=== PATIENT | female | born 1960 | race Caucasian/White ===

== ENCOUNTER → 2016-09-17 | Outpatient (CLI) | payer OTHER ==
[~2016-09-17] MED LIST: ASPI81TA28 PO; B-COTAB4 PO; BUPRTAB51 PO; CALC500T83 PO; CHOL100010 PO; CONJ.6255 PO; CONJ0.453 PO; GLC/500 PO; HYDR-5688 PO; LEVO100T7 PO; OMEGCAP2 PO; PRLSR20 PO; RANI75TA7 PO; SIMV20TA2 PO; TRIA75TA PO; [UNRECOGNIZED DRUG - OTHER]
== END | disposition home or self-care (01) ==
LOC: C.LABSPEC 16:00
PROVIDERS: ATTEND Preventive Medicine Occupational Medicine
DX: Z77.21 Contact with and (suspected) exposure to potentially hazardous body fluids (principal)

== ENCOUNTER → 2016-12-04 | Outpatient (CLI) | payer OTHER ==
[2016-12-04 13:22] LABS: ESTIMATED AVERAGE GLUCOSE 137 mg/dl; HA1C FLAG Normal (Normal)
[2016-12-04 13:26] LABS: BLOOD UREA NITROGEN 15 mg/dl (7-18); BUN/CREATININE RATIO 18.6 (10-20); CALCIUM 9.8 mg/dl (8.5-10.1); CARBON DIOXIDE 29 mmol/L (21-32); CHLORIDE 107 mmol/L (98-107); CREATININE 0.81 mg/dl (0.60-1.20); GLUCOSE 102 mg/dl (70-99); POTASSIUM 4.2 mmol/L (3.5-5.1); SODIUM 141 mmol/L (136-145)
== END ==
LOC: C.LABPVFM 10:06
PROVIDERS: ATTEND Family Medicine
DX: E11.9 Type 2 diabetes mellitus without complications (principal); E78.5 Hyperlipidemia, unspecified

== ENCOUNTER → 2016-12-17 | Outpatient (CLI) | payer OTHER ==
--- NOTE | 2016-12-17 16:30 | MAMMOGRAPHY REPORT ---
BILATERAL DIGITAL SCREENING MAMMOGRAM TOMOSYNTHESIS WITH CAD: 12/17/2016 CLINICAL HISTORY: Routine screening. Patient has no complaints. TECHNIQUE: Breast tomosynthesis in addition to standard 2D mammography was performed. Current study was also evaluated with a Computer Aided Detection (CAD) system. COMPARISON: Comparison is made to exams dated: 12/08/2015 mammogram, 11/08/2014 mammogram, 09/19/2013 m ammogram, 01/13/2012 mammogram, 12/17/2010 mammogram - [facility], and 02/21/2009. BREAST COMPOSITION: There are scattered areas of fibroglandular density in both breasts. FINDINGS: No suspicious masses, calcifications, or areas of architectural distortion are noted in e ither breast. There has been no significant interval change compared to prior exams. IMPRESSION: ACR BI-RADS CATEGORY 1: NEGATIVE There is no mammographic evidence of malignancy. A 1 year screening mammogram is recommended. The p atient will receive written notification of the results. Approximately 10% of breast cancers are not detected with mammography. A negative mammographic repor t should not delay biopsy if a clinically suggestive mass is present. Margot Walker M.D. ah/:12/17/2016 13:37:21 Spike Driver: Genny BUENO(Andrea)(M), [facility] letter sent: Normal 1/2 BI-RADS Code: ACR BI-RADS Category 1: Negative
== END | disposition home or self-care (01) ==
LOC: C.MAMM 08:40
PROVIDERS: ATTEND Obstetrics & Gynecology
DX: Z12.31 Encounter for screening mammogram for malignant neoplasm of breast (principal)

== ENCOUNTER 2017-03-04 12:28 | Emergency (ER) | payer OTHER ==
[~2017-03-04] VITALS: Ht 165.1 cm; Wt 101.2 kg
[~2017-03-04 12:28] MED LIST changes: -ASPI81TA28 PO; -B-COTAB4 PO; -BUPRTAB51 PO; -CALC500T83 PO; -CHOL100010 PO; -CONJ.6255 PO; -GLC/500 PO; -HYDR-5688 PO; -LEVO100T7 PO; -OMEGCAP2 PO; -SIMV20TA2 PO; -TRIA75TA PO
[2017-03-04 12:29] VITALS: TEMP 36.6; Ht 165.1 cm; Wt 101.2 kg
[2017-03-04] MEDS ORDERED: IBUPROFEN 600 MG TAB PO STA (12:35)
[2017-03-04] MEDS ORDERED: HYDROCODONE/ACETAMOPHEN 5/325MG TAB PO STA (12:35)
[2017-03-04] MEDS ORDERED: BUPRTAB51 PO (12:43)
[2017-03-04] MEDS ORDERED: SIMV20TA2 PO (12:43)
[2017-03-04] MEDS ORDERED: ASPI81TA28 PO (12:43)
[2017-03-04] MEDS ORDERED: B-COTAB4 PO (12:43)
[2017-03-04] MEDS ORDERED: CHOL100010 PO (12:43)
[2017-03-04] MEDS ORDERED: TRIA75TA PO (12:43)
[2017-03-04] MEDS ORDERED: CONJ.6255 PO (12:43)
[2017-03-04] MEDS ORDERED: GLC/500 PO (12:43)
[2017-03-04] MEDS ORDERED: LEVO100T7 PO (12:43)
[2017-03-04] MEDS ORDERED: OMEGCAP2 PO (12:43)
[2017-03-04] MEDS ORDERED: CALC500T83 PO (12:43)
--- NOTE | 2017-03-04 12:55 | DIAGNOSTIC IMAGING REPORT ---
LEFT KNEE 2 VIEWS CLINICAL HISTORY: Left knee twisting injury. FINDINGS: AP and crosstable lateral views of left knee are obtained. No prior studies are available for comparison at the time of dictation. The skeletal structures are well mineralized. No fracture is seen. There is only minimal degenerative narrowing in the medial and patellofemoral compartments. There are tiny patellar enthesophytes and small marginal osteophytes. A small joint effusion is suspected. The overlying soft tissues are within normal limits. IMPRESSION: Small joint effusion with no acute bony abnormality seen in the left knee. Electronically signed by: Robbie Muniz M.D. 03/04/2017 12:54 PM Dictated Date/Time: 03/04/2017 12:53 PM
--- NOTE | 2017-03-04 13:11 | EMERGENCY ROOM VISIT NOTE ---
ED Visit Note First contact with patient: 12:31 CHIEF COMPLAINT: Left Knee injury HISTORY OF PRESENT ILLNESS: This 57-year-old female presents to the ER with chief complaint of left knee injury which occurred while at work. 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 She states that her knee gave out. Since that time it feels like it is going to give out intermittently. She is able to bear weight but it is painful. The patient denies any prior injury to the left knee. The patient has been seen at [facility] in the past for other orthopedic needs. REVIEW OF SYSTEMS: 6 system review was performed and was negative unless stated otherwise in history of present illness. PMH: The patient is healthy; there is no significant medical or surgical history. SOCIAL HISTORY: Patient lives at home. PHYSICAL EXAM: Vital Signs: Were reviewed Reviewed Nurse's notes. GENERAL: 57- year-old white female appears in no acute distress. MENTAL STATUS: Alert, oriented, and cooperative. LEFT KNEE: No gross bony deformity noted. No erythema or edema noted. The patient is tender to palpation over the popliteal region. No palpable masses in this area. Patient has full range of motion of the knee with pain elicited with complete extension. There is no joint effusion. The patient has slight looseness of the posterior ligament as compared to the right side. EMERGENCY DEPARTMENT COURSE: The patient was evaluated. The patient's EMR medication list were reviewed. The patient was given Motrin 600 mg by mouth and Anacortes 5/325 mg, 2 tablets by mouth for pain. X-ray of the left knee was ordered and interpreted by the radiologist and myself. DIAGNOSTICS:LEFT KNEE 2 VIEWS CLINICAL HISTORY: Left knee twisting injury. FINDINGS: AP and crosstable lateral views of left knee are obtained. No prior studies are available for comparison at the time of dictation. The skeletal structures are well mineralized. No fracture is seen. There is only minimal degenerative narrowing in the medial and patellofemoral compartments. There are tiny patellar enthesophytes and small marginal osteophytes. A small joint effusion is suspected. The overlying soft tissues are within normal limits. IMPRESSION: Small joint effusion with no acute bony abnormality seen in the left knee. Electronically signed by: Robbie Muniz M.D. 03/04/2017 12:54 PM Dictated Date/Time: 03/04/2017 12:53 PM The patient was informed of the findings. The patient was placed in a knee immobilizer. The patient was discharged home in stable condition. DIAGNOSIS: Sprained left Knee DISCHARGE INSTRUCTIONS: Knee immobilizer for 3 - 5 days until the pain subsides , ibuprofen, 600 mg every 6 hours if needed for pain. Take Anacortes as needed for more severe pain. Do not drive while taking the Anacortes. Ice to and elevation to the knee frequently for the next 24 hours. Stay off the leg as much as possible and recommended follow-up with [facility]. Current/Historical Medications Scheduled Aspirin (Aspirin Ec), 81 MG PO DAILY B-Complex W/Biotin & Folic Aci (Super B-100), 1 TAB PO DAILY Bupropion Hcl (Wellbutrin Xl), 300 MG PO DAILY Calcium (Calcium), 1 TAB PO DAILY Cholecalciferol (Vitamin D), 1 TAB PO DAILY Estrog Conj/Medryoxyprog Acet (Prempro 0.625MG/2.5MG), 1 TAB PO DAILY Levothyroxine Sodium (Levothyroxine Sodium), 100 MCG PO DAILY Metformin Hcl (Glucophage), 500 MG PO BID [place]-3 Fatty Acids (Fish Oil), 1 CAP PO DAILY Simvastatin (Zocor), 20 MG PO HS Triamterene & Hydrochlorothiaz (Hctz/Triamterene), 1 TAB PO DAILY Allergies Coded Allergies: Cephalosporins (Verified Allergy, Severe, CEFADROXIL-ANAPHYLACTIC, 11/28/13 ) ANAPHYLAXIS TO DURICEF, HAS HAD AMOXIL SINCE THEN W/O PROBLEM. Vital Signs Date Time Temp Pulse Resp B/P (MAP) Pulse Ox O2 Delivery O2 Flow Rate FiO2 03/04/17 12:29 36.6 118 20 166/96 93 Room Air Medications Administered Medications (Trade) Dose Ordered Sig/Vitaliy Route Start Time Stop Time Status Last Admin Dose Admin Ibuprofen (Motrin Tab) 600 mg NOW STAT PO 03/04/17 12:35 03/04/17 12:37 DC 03/04/17 12:56 600 MG Acetaminophen/ Hydrocodone Bitart ([place] 5/325 Tab) 2 tab NOW STAT PO 03/04/17 12:35 03/04/17 12:37 DC 03/04/17 12:56 2 TAB Departure Information Referrals Yfn, Justice O.,M.D. (PCP) Patient Instructions My [facility]
[2017-03-04] MEDS ORDERED: HYDR-5688 PO (13:13)
[2017-03-04 13:30] VITALS: BP 139/93; PULSE 91; O2SAT 98
== END 2017-03-04 13:32 | disposition home or self-care (01) ==
LOC: C.EDB 12:29 → C.EDD 13:32
DX: S83.92XA Sprain of unspecified site of left knee, initial encounter (principal); X58.XXXA Exposure to other specified factors, initial encounter; Z79.82 Long term (current) use of aspirin; Z79.899 Other long term (current) drug therapy; Z88.8 Allergy status to other drugs, medicaments and biological substances

== ENCOUNTER → 2017-03-17 | Outpatient (CLI) | payer OTHER ==
[~2017-03-17] MED LIST changes: +ASPI81TA28 PO; +B-COTAB4 PO; +BUPRTAB51 PO; +CALC500T83 PO; +CHOL100010 PO; +CONJ.6255 PO; -CONJ0.453 PO; +GLC/500 PO; +HYDR-5688 PO; +LEVO100T7 PO; +OMEGCAP2 PO; -PRLSR20 PO; -RANI75TA7 PO; +SIMV20TA2 PO; +TRIA75TA PO; -[UNRECOGNIZED DRUG - OTHER]
== END | disposition home or self-care (01) ==
LOC: C.CPL 13:23
PROVIDERS: ATTEND Orthopaedic Surgery
DX: Z01.810 Encounter for preprocedural cardiovascular examination (principal)

== ENCOUNTER → 2017-05-06 | Outpatient (CLI) | payer OTHER ==
[2017-05-06 10:04] LABS: BLOOD UREA NITROGEN 17 mg/dl (7-18); BUN/CREATININE RATIO 20.5 (10-20); CALCIUM 9.2 mg/dl (8.5-10.1); CARBON DIOXIDE 30 mmol/L (21-32); CHLORIDE 105 mmol/L (98-107); CREATININE 0.84 mg/dl (0.60-1.20); GLUCOSE 110 mg/dl (70-99); SODIUM 140 mmol/L (136-145)
[2017-05-06 10:15] LABS: CHOLESTEROL 154 mg/dl (0-200); CHOLESTEROL/HDL RATIO 2.2; HDL CHOLESTEROL 69 mg/dl; LDL CHOLESTEROL CALCULATED 66 mg/dl; THYROID STIMULATING HORMONE 0.831 uIu/ml (0.300-4.500); TRIGLYCERIDES 97 mg/dl (0-150); VERY LOW DENSITY LIPOPROT CALC 19 mg/dl
== END | disposition home or self-care (01) ==
LOC: C.LAB 07:36
PROVIDERS: ATTEND Family Medicine
DX: E11.9 Type 2 diabetes mellitus without complications (principal); E03.9 Hypothyroidism, unspecified; E78.5 Hyperlipidemia, unspecified

== ENCOUNTER → 2017-12-19 | Outpatient (CLI) | payer OTHER ==
[~2017-12-19] MED LIST changes: -HYDR-5688 PO
--- NOTE | 2017-12-19 15:10 | MAMMOGRAPHY REPORT ---
BILATERAL DIGITAL SCREENING MAMMOGRAM TOMOSYNTHESIS WITH CAD: 12/19/2017 CLINICAL HISTORY: Routine screening. Patient has no complaints. TECHNIQUE: Breast tomosynthesis in addition to standard 2D mammography was performed. Current study was also evaluated with a Computer Aided Detection (CAD) system. COMPARISON: Comparison is made to exams dated: 12/17/2016 mammogram, 12/08/2015 mammogram, 11/08/2014 ma mmogram, 09/19/2013 mammogram, 01/13/2012 mammogram, and 12/17/2010 mammogram - [facility]. BREAST COMPOSITION: There are scattered areas of fibroglandular density in both breasts. FINDINGS: The parenchymal pattern is unchanged. No developing mass, architectural distortion or clus ter of suspicious microcalcifications is seen in either breast. IMPRESSION: ACR BI-RADS CATEGORY 2: BENIGN There is no mammographic evidence of malignancy. A 1 year screening mammogram is recommended. The pa tient will receive written notification of the results. Approximately 10% of breast cancers are not detected with mammography. A negative mammographic report should not delay biopsy if a clinically suggestive mass is present. Deedee River M.D. ay/:12/19/2017 13:28:13 Management Developer: Kanchan BUENO(Andrea)(Ese)(BD), [facility] letter sent: Normal 1/2 BI-RADS Code: ACR BI-RADS Category 2: Benign
== END | disposition home or self-care (01) ==
LOC: C.MAMM 09:50
PROVIDERS: ATTEND Obstetrics & Gynecology
DX: Z12.31 Encounter for screening mammogram for malignant neoplasm of breast (principal)

== ENCOUNTER → 2017-12-21 | Outpatient (CLI) | payer OTHER ==
[2017-12-21 13:09] LABS: HEMATOCRIT 44.4 % (37-47); HEMOGLOBIN 15.2 g/dL (12.0-16.0); MEAN CELL VOLUME 89.5 fL (80-100); MEAN CORPUSCULAR HEMOGLOBIN 30.6 pg (25-34); MEAN CORPUSCULAR HGB CONC 34.2 g/dl (32-36); MEAN PLATELET VOLUME 9.6 fL (7.4-10.4); PLATELET COUNT 259 K/uL (130-400); RED CELL DISTRIBUTION WIDTH CV 13.4 % (11.5-14.5); RED CELL DISTRIBUTION WIDTH SD 43.4 fL (36.4-46.3); WHITE BLOOD COUNT 7.48 K/uL (4.8-10.8)
[2017-12-21 13:22] LABS: HEMOGLOBIN A1C 6.6 % (4.5-5.6)
[2017-12-21 14:03] LABS: ALBUMIN 3.8 gm/dl (3.4-5.0); ALKALINE PHOSPHATASE 90 U/L (45-117); ALT/SGPT 34 U/L (12-78); AST/SGOT 30 U/L (15-37); BLOOD UREA NITROGEN 21 mg/dl (7-18); CALCIUM 8.9 mg/dl (8.5-10.1); CARBON DIOXIDE 28 mmol/L (21-32); CHOLESTEROL 157 mg/dl (0-200); CREATININE 0.84 mg/dl (0.60-1.20); GLUCOSE 147 mg/dl (70-99); LDL CHOLESTEROL CALCULATED 74 mg/dl; POTASSIUM 4.1 mmol/L (3.5-5.1); SODIUM 137 mmol/L (136-145); TOTAL PROTEIN 7.6 gm/dl (6.4-8.2)
== END | disposition home or self-care (01) ==
LOC: C.LABPVFM 07:40
PROVIDERS: ATTEND Family Medicine
DX: R60.9 Edema, unspecified (principal)

== ENCOUNTER → 2018-03-07 | Outpatient (CLI) | payer OTHER | END | disposition home or self-care (01) | LOC: C.PAPS 17:31 | PROVIDERS: ATTEND Obstetrics & Gynecology | DX: Z01.419 Encounter for gynecological examination (general) (routine) without abnormal findings (principal) ==

== ENCOUNTER 2024-10-31 12:42 | Inpatient (IN) ==
--- NOTE | 2024-10-31 12:55 | Emergency Department Note ---
Impression & Plan Headache, Hypertension ED Provider Note CHIEF COMPLAINT: Headache, blurred vision HISTORY OF PRESENTING ILLNESS: Patient is a pleasant 64-year-old female who arrives to the emergency department for evaluation of persistent headache that began at approximately 4:00 this morning. She reports recent intermittent episodes of dizziness, with no history of vertigo. She reports this morning she had a headache that began, and has been persistent throughout the day. She denies any weakness, difficulty with speech, or other neurological deficits. She reports some blurred vision. She states noting that her blood pressure is currently elevated, with no history of hypertension. She also notes some chest pressure, however no shortness of breath. REVIEW OF SYSTEMS: See HPI for pertinent positives and pertinent negatives. ALLERGIES: See below MEDICATIONS: See below PAST MEDICAL HISTORY: See below PHYSICAL EXAM: VITALS: Vitals are noted on the nurse's note and reviewed by myself. Vital signs stable. GENERAL: 64-year-old female, in no acute distress, nondiaphoretic, well- developed well-nourished. SKIN: The skin was without rashes, erythema, edema, or bruising. HEAD: Normocephalic atraumatic. EYES: Pupils equal round and reactive to light and accommodation. Conjunctivae without injection, sclerae without icterus. Extraocular movements intact. No nystagmus present. NECK: Supple without nuchal rigidity. No lymphadenopathy. No JVD. HEART: Regular rate and rhythm without murmurs gallops or rubs. LUNGS: Clear to auscultation bilaterally without wheezes, rales or rhonchi. No retractions or accessory muscle use. MUSCULOSKELETAL: No muscle atrophy, erythema, or edema noted. Normal gait. Strength 5/5 throughout. NEURO: Patient was alert and oriented to person place and time. No focal neurological deficits. DIFFERENTIAL DIAGNOSIS: Migraine headache, meningitis, sinusitis, CO exposure, ICH, SAH, infection, tumor, headache, sinus thrombosis, arterial dissection, as well as other pathologies. ED COURSE AND MEDICAL DECISION MAKING: MEDICATIONS GIVEN: 1000 mg IV acetaminophen, 1 g IV magnesium MONITOR: Continuous wheelabrator operator: Order was placed for continuous wheelabrator operator. Patient was placed on the wheelabrator operator and continuous pulse ox. Patient was noted to be in normal sinus rhythm at an initial rate of 81 bpm per my interpretation. EKG: EKG was interpreted by myself as sinus rhythm with occasional PVCs, at a rate of 80 bpm, no ST elevation or depression. Previous for comparison from October 29, 2020 shows new PVCs. INTERPRETATION OF LABS: I interpreted the labs with full lab results as below in the lab section of this note. Pertinent lab results discussed in the MDM section below. INTERPRETATION OF IMAGING: Imaging studies were interpreted by myself and read by radiology as per the imaging section of this note. MDM SUMMARY: The patient is a pleasant, well-appearing, 64-year-old female who arrives to the emergency department for evaluation of the above-stated complaint. A saline lock was established, CBC, CMP, magnesium, PT/INR, PTT, D- dimer, troponin as well as urinalysis were obtained. CBC shows no leukocytosis, no anemia. CMP shows hypomagnesemia, PT/INR, PTT within normal limits. D-dimer 580, however negative with age adjustment. Troponin negative. Urinalysis negative for infection. Chest x-ray imaging as well as CT imaging of the head were obtained. Chest x-ray imaging per my interpretation shows no acute cardiopulmonary process. CT imaging of the head was obtained which shows equivocal loss of headley-white differentiation in the left posterior parietal region. Recommendation is made by radiology for consideration of brain MRI for further evaluation. NIHSS performed at that time, with stroke evaluation, and orders placed minus CTA imaging of the head and neck pending MRI imaging. NIHSS performed by nursing staff as well as dysphagia screening with negative result. Patient did remain hypertensive during her stay. She was provided with as milligrams of IV acetaminophen, and 1 g of IV magnesium for correction. I spoke with Dr. Sheldon from the [facility] hospitalist service regarding admission for further stroke workup and evaluation. He agreed to accept the patient for admission, and further patient evaluation and workup. Please refer to his documentation. DIAGNOSIS: Headache, hypertension The chart was completed utilizing [employer] voice recognition software. Grammatical errors, random word insertions, pronoun errors, and incomplete sentences are an occasional consequence of this system due to software limitations, ambient noise, and hardware issues. Any formal questions or concerns about the content, text, or information contained within the body of this dictation should be directly addressed to the provider for clarification. TREATMENT PLAN/DISCHARGE INSTRUCTIONS: Admit to hospitalist service Past Med/Surg History Problem List (Updated 11/01/24 @ 11:13 by LAYNE Perry) Hypertension (Acute) Headache (Acute) History of artificial eye lens Anxiety HTN (hypertension) Inconclusive mammogram Ureteral stricture, right Encounter for pre-operative examination Routine health maintenance (Chronic) Encounter for annual routine gynecological examination Left knee pain Hydronephrosis concurrent with and due to calculi of kidney and ureter Bilateral nephrolithiasis Urge incontinence (Chronic) Type 2 diabetes mellitus (Chronic) Peripheral neuropathy (Chronic) Hypothyroidism (Chronic) Edema (Acute) Dyslipidemia (Chronic) Depression (Acute) Arthralgia of multiple sites (Acute) Medical History History of kidney stones Temporomandibular joint disorder no bite block/no surgeries Exercise-induced asthma inhaler prn Surgical History History of cataract surgery History of carpal tunnel release of both wrists Status post trigger finger release x5 History of lithotripsy (~2006) with stent placement History of salpingo-oophorectomy History of tonsillectomy and adenoidectomy History of tooth extraction History of wisdom tooth extraction S/P colonoscopy last 08/2020 hx of polypectomy H/O arthroscopy of knee left History of hysteroscopy 2013, PMB on HRT H/O dilation and curettage Family History Family/Other No problems noted. Mother Myocardial infarction Family history of reaction to anesthesia difficulty waking Father Family history of diabetes mellitus Denies family history of Ovarian cancer Prostate cancer Breast cancer Colorectal cancer Social History Smoking Status: Former smoker Tobacco Type: Cigarettes Age Started Using Tobacco: 14; Age Quit Using Tobacco: 51; packs per day: 0.9; Second Hand Exposure: Yes (parents smoked/ex and children all smoke); Do You Dip or Chew Tobacco: No; Hx Alcohol Use: Yes Alcohol type: beer Hx Substance Use: No Preferred Language: Tamazight Communication Ability: Effective Data Transcriber Required: No Beliefs That Will Affect Care: None marital status: Current Living Situation: Family Current Living Situation Comment: lives at home with pets current occupational status: employed current occupation: Is Support Analyst How many Children do You have: 3 Feels Safe at Home: Yes Childhood Exposure to Second-Hand Smoke: Yes Diet: regular caffeine: Yes Dental Care, Regularly: Yes Physical Activity Frequency: Does not Exercise Seatbelt Use: always Sunscreen Use: Yes Assistive Devices: None Allergies Allergies Allergy/AdvReac Type Severity Reaction Status Date / Time cefadroxil [From Durice] Allergy Severe ANAPHYLAXIS Verified 10/31/24 14:31 Cephalosporins Allergy Severe CEFADROXIL- Verified 10/31/24 14:31 ANAPHYLACTI C Home Meds Home Medications Medication Instructions Recorded Confirmed calcium 600 mg (as 1 cap PO HS 01/20/19 10/31/24 carbonate)-vitamin D3 5 mcg (200 unit) capsule (Calcium 600 + D(3)) aspirin 81 mg tablet,delayed 81 mg PO HS 10/26/20 10/31/24 release (Sonia Low Dose Aspirin) omega [id number]-[id number]-fish oil 900 1 cap PO QAM 10/31/24 10/31/24 mg-1,400 mg capsule,delayed release triamterene 37.5 0.5 tab PO Q OTHER DAY 10/31/24 10/31/24 mg-hydrochlorothiazide 25 mg tablet Previous Rx's Medication Instructions Recorded albuterol sulfate 90 mcg/actuation 1 - 2 puff inhalation Q4 PRN 08/08/23 aerosol inhaler (Ventolin HFA) Shortness Of Breath Or Wheezing #6.7 grams atorvastatin 40 mg tablet 40 mg PO HS #90 tabs 07/26/24 duloxetine 60 mg capsule,delayed 60 mg PO QAM #90 caps 07/26/24 release (Cymbalta) levothyroxine 100 mcg tablet 100 mcg PO QAM #90 tabs 07/26/24 metformin 1,000 mg tablet 1,000 mg PO BID #180 tabs 07/26/24 oxybutynin chloride 10 mg 10 mg PO DAILY #90 tabs 07/26/24 tablet,extended release 24 hr levofloxacin 500 mg tablet 500 mg PO DAILY 10 days #10 tabs 11/01/24 prednisone 20 mg tablet 40 mg (2 x 20 mg) PO DAILY 4 days 11/01/24 #8 tabs Results & Data (ED) Vital Signs Vital Signs - 24 hr 10/31/24 12:49 10/31/24 13:13 10/31/24 13:13 Temperature 36.4 C L Temperature Source Temporal Artery Scan Pulse Rate 81 76 Pulse Rate [Apical] 79 Respiratory Rate 18 16 17 Respiratory Effort / Characteristics Non-Labored Non-Labored Spontaneous Respiratory Depth Normal Normal Respiratory Pattern Regular Blood Pressure 182/106 H Blood Pressure [Right Arm] 162/105 H Blood Pressure Mean 131 Blood Pressure Mean [Right Arm] 124 Blood Pressure Position [Right Arm] Semi-fowlers Pulse Oximetry 96 95 97 Oxygen Delivery Method Room Air Room Air Room Air Sepsis Recent Fever Within 48 Hours No Sepsis New/Unexplained Change in Mental Status N/A Sepsis Action Taken by Nursing No Action Required 10/31/24 13:43 10/31/24 14:37 10/31/24 15:00 Temperature Temperature Source Pulse Rate 85 85 Pulse Rate [Apical] 85 Respiratory Rate 22 16 Respiratory Effort / Characteristics Non-Labored Spontaneous Respiratory Depth Normal Respiratory Pattern Blood Pressure 183/115 H Blood Pressure [Right Arm] 177/102 H Blood Pressure Mean 144 Blood Pressure Mean [Right Arm] 127 Blood Pressure Position [Right Arm] Semi-fowlers Pulse Oximetry 96 96 Oxygen Delivery Method Room Air Sepsis Recent Fever Within 48 Hours Sepsis New/Unexplained Change in Mental Status Sepsis Action Taken by Nursing 10/31/24 15:30 Temperature Temperature Source Pulse Rate 1 L Pulse Rate [Apical] Respiratory Rate 16 Respiratory Effort / Characteristics Respiratory Depth Respiratory Pattern Blood Pressure 187/108 H Blood Pressure [Right Arm] Blood Pressure Mean 140 Blood Pressure Mean [Right Arm] Blood Pressure Position [Right Arm] Pulse Oximetry 97 Oxygen Delivery Method Room Air Sepsis Recent Fever Within 48 Hours Sepsis New/Unexplained Change in Mental Status Sepsis Action Taken by Longterm Medications Current Medication List: was personally reviewed by me Laboratory Data Attestation: I reviewed the patient's lab results. 10/31/24 13:07 10/31/24 13:07 Lab Results 10/31/24 10/31/24 Range/Units 13:07 14:41 WBC 8.76 (4.8-10.8) K/ul RBC 4.55 (4.20-5.40) M/uL Hgb 14.4 (12.0-16.0) g/dl Hct 42.0 (37.0-47.0) % MCV 92.3 (80.0-100.0) fL MCH 31.6 (25.0-34.0) pg MCHC 34.3 (32.0-36.0) g/dL RDW Std Deviation 42.5 (36.4-46.3) fL RDW Coeff of Yahaira 12.5 (11.5-14.5) % Plt Count 299 (130-400) K/uL MPV 9.7 (9.4-12.4) fL Immature Gran % (Auto) 0.3 % Neut % (Auto) 57.2 % Lymph % (Auto) 33.1 % [place] % (Auto) 5.5 % Eos % (Auto) 3.3 % Baso % (Auto) 0.6 % Neut # (Auto) 5.01 (1.40-6.50) K/uL Lymph # (Auto) 2.90 (1.20-3.40) K/uL [place] # (Auto) 0.48 (0.11-0.59) K/uL Eos # (Auto) 0.29 (0.00-0.50) K/uL Baso # (Auto) 0.05 (0.00-0.20) K/uL Immature Gran # (Auto) 0.03 (0.01-0.20) K/uL PT 10.4 (9.0-12.0) Seconds INR 1.0 (0.9-1.1) APTT 25 (21-31) Seconds PTT Ratio 0.9 D-Dimer 580 H* (0-500) ug/L FEU Sodium 140 (136-145) mmol/L Potassium 3.7 (3.5-5.1) mmol/L Chloride 103 (98-107) mmol/L Carbon Dioxide 31 (21-32) mmol/L Anion Gap 6 (3-11) BUN 19 (6-23) mg/dl Creatinine 0.65 (0.6-1.2) mg/dl Est Cr Clr Drug Dosing 76.6 ml/min eGFR 97.04 BUN/Creatinine Ratio 29.2 H (10-20) Glucose 112 H (70-99(Fasting)) mg/dl Calcium 10.4 H (8.6-10.3) mg/dl Magnesium 1.5 L (1.7-2.4) mg/dl Total Bilirubin 0.6 (0.2-1.0) mg/dl AST 22 (13-39) U/L ALT 14 (7-52) U/L Alkaline Phosphatase 87 (34-104) U/L Troponin I High Sens 2.8 (0-14) pg/ml Total Protein 8.1 (6.0-8.3) gm/dl Albumin 4.9 (3.4-5.0) gm/dl Globulin 3.2 (2.5-4.0) gm/dl Albumin/Globulin Ratio 1.5 (0.9-2) Urine Color Yellow Urine Appearance Clear (Clear) Urine pH 6.0 (4.5-7.5) Ur Specific [place] 1.013 (1.000-1.030) Urine Protein Negative (Negative) Urine Glucose (UA) Negative (Negative) Urine Ketones Negative (Negative) Urine Blood Negative (Negative) Urine Nitrite Negative (Negative) Urine Bilirubin Negative (Negative) Urine Urobilinogen Negative (Negative) Ur Leukocyte Esterase Negative (Negative) Administered Medications Discontinued Medications Acetaminophen (Acetaminophen 325 Mg Tab) 650 mg PO Q4H PRN PRN Reason: Pain or Fever Stop: 11/30/24 17:53 Last Admin: 10/31/24 20:06 Dose: 650 mg Documented By: JUANCARLOS Aspirin (Aspirin 325 Mg Ectab) 325 mg PO ONE ONE Stop: 10/31/24 21:01 Last Admin: 10/31/24 21:25 Dose: 325 mg Documented By: JUANCARLOS Atorvastatin Calcium (Atorvastatin 40 Mg Tab) 40 mg PO [facility] Stop: 11/30/24 20:59 Last Admin: 10/31/24 21:26 Dose: 40 mg Documented By: JUANCARLOS Calcium/Vitamin D (Calcium 600mg + Vit D 400 Iu Tab) 1 tab PO HS [facility] Stop: 11/30/24 20:59 Last Admin: 10/31/24 20:04 Dose: 1 tab Documented By: JUANCARLOS Duloxetine HCl (Duloxetine Hcl 60 Mg Cap) 60 mg PO QAM [facility] Stop: 12/01/24 08:59 Last Admin: 11/01/24 09:11 Dose: 60 mg Documented By: SANJIV Guaifenesin (Guaifenesin 600 Mg Tabcr) 1,200 mg PO Q12 LYNETTE Stop: 11/30/24 20:59 Last Admin: 11/01/24 09:11 Dose: 1,200 mg Documented By: Admin: 10/31/24 20:04 Dose: 1,200 mg Documented By: JUANCARLOS Heparin Sodium (Porcine) (Heparin Sod 5,000 Unit/0.5 Ml Vial) 5,000 units SQ Q12 LYNETTE Stop: 11/30/24 20:59 Last Admin: 11/01/24 09:12 Dose: Not Given Documented By: Admin: 10/31/24 20:03 Dose: 5,000 units Documented By: JUANCARLOS Acetaminophen (Ofirmev) 1,000 mg in 100 mls @ 400 mls/hr IV NOW STA Stop: 10/31/24 13:11 Last Infusion: 10/31/24 14:34 Dose: Infused Documented By: Admin: 10/31/24 13:36 Dose: 400 mls/hr Documented By: ROXANNE Magnesium Sulfate/Dextrose (Magnesium Sulfate / D5w) 1 gm in 100 mls @ 100 mls/hr IV NOW STA Stop: 10/31/24 15:00 Last Infusion: 10/31/24 15:39 Dose: Infused Documented By: Admin: 10/31/24 14:33 Dose: 100 mls/hr Documented By: BOBBY Magnesium Sulfate/Dextrose (Magnesium Sulfate / D5w) 1 gm in 100 mls @ 50 mls/hr IV ONE ONE Stop: 10/31/24 19:59 Last Infusion: 10/31/24 22:01 Dose: Infused Documented By: Admin: 10/31/24 19:57 Dose: 50 mls/hr Documented By: JUANCARLOS Ketorolac Tromethamine (Ketorolac 30 Mg/Ml Vial) 15 mg IV NOW ONE Stop: 10/31/24 15:50 Last Admin: 10/31/24 16:09 Dose: 15 mg Documented By: JASON Labetalol HCl (Labetalol Hcl Iv 5 Mg/Ml 20ml) 10 mg IV NOW STA Stop: 10/31/24 19:47 Last Admin: 10/31/24 19:58 Dose: 10 mg Documented By: JUANCARLOS Levothyroxine Sodium (Levothyroxine Sodium 100 Mcg Tablet) 100 mcg PO DAILYBB LYNETTE Stop: 12/01/24 06:29 Last Admin: 11/01/24 05:40 Dose: 100 mcg Documented By: JUANCARLOS Oxybutynin Chloride (Oxybutynin Chloride Xl 5 Mg Tabcr) 10 mg PO DAILY LYNETTE Stop: 12/01/24 08:59 Last Admin: 11/01/24 09:11 Dose: 10 mg Documented By: SANJIV Prednisone (Prednisone 20 Mg Tab) 40 mg PO ONE ONE Stop: 10/31/24 19:01 Last Admin: 10/31/24 21:25 Dose: 40 mg Documented By: JUANCARLOS Imaging Data Attestation: I personally reviewed and interpreted this imaging study as follows: Discharge Plan Visit Data Chief Complaint: Headache Stated Complaint: HEADACHE, NAUSEA ED Provider: Rashid Campbell ED Midlevel Provider: Nicci Mayo Discharge Problem: Headache, Hypertension Patient Disposition: Admitted As Inpatient Discharge Instructions Interventions: ED Discharge Assessment Last Done: 10/31/24 18:37
--- NOTE | 2024-10-31 13:22 | XRay Report ---
XR chest 1V portable HISTORY: 64 years-old Female Chest pain, nonspecific COMPARISON: 10/29/2020 TECHNIQUE: AP view the chest FINDINGS: Spondylotic spurring of the spine. Cardiomediastinal and hilar silhouettes are within normal limits. No pneumothorax, pleural effusion, airspace consolidation or pulmonary edema. Bones appear grossly in tact. IMPRESSION: No acute process. ACT 112: Negative or not required by law. The above report was generated using voice recognition software. It may contain grammatical, syntax o r spelling errors. Electronically signed by: Jorje Jensen M.D. 10/31/2024 1:21 PM
[2024-10-31 13:33] LABS: Basophils # (auto) 0.05 K/uL (0.00-0.20); Basophils % (auto) 0.6 %; Eosinophils # (auto) 0.29 K/uL (0.00-0.50); Eosinophils % (auto) 3.3 %; Hemoglobin 14.4 g/dl (12.0-16.0); Immature Granulocytes # (auto) 0.03 K/uL (0.01-0.20); Immature Granulocytes % (auto) 0.3 %; Lymphocytes % (auto) 33.1 %; Mean Corpuscular Hemoglobin 31.6 pg (25.0-34.0); Mean Corpuscular Hgb Conc 34.3 g/dL (32.0-36.0); Mean Corpuscular Volume 92.3 fL (80.0-100.0); Mean Platelet Volume 9.7 fL (9.4-12.4); Monocytes # (auto) 0.48 K/uL (0.11-0.59); Monocytes % (auto) 5.5 %; Neutrophils # (auto) 5.01 K/uL (1.40-6.50); Neutrophils % (auto) 57.2 %; Platelet Count 299 K/uL (130-400); RDW Coefficient of Variation 12.5 % (11.5-14.5); RDW Standard Deviation 42.5 fL (36.4-46.3); Red Blood Count 4.55 M/uL (4.20-5.40); White Blood Count 8.76 K/ul (4.8-10.8)
[2024-10-31] MEDS: ACETAMINOPHEN 1,000 MG/100 ML VIAL IV STA (13:36)
--- NOTE | 2024-10-31 13:46 | CT Scan Report ---
CT head/brain wo con CLINICAL HISTORY: headache. TECHNIQUE: Multiple axial CT images of the head were obtained without contrast. Sagittal and coronal reconstructions were done. A dose lowering technique was utilized adhering to the principles of ALARA . CT DOSE: 547.75 mGy.cm COMPARISON: None FINDINGS: There is no intra-axial or extra-axial fluid collection, hemorrhage, or mass. There is an a dav of subtle loss of the headley-white differentiation in the left upper posterior parietal region of u ncertain clinical significance in the absence of a neurological deficit. Consider MRI imaging if stro ke is a clinical consideration. The ventricles and sulci are age-appropriate with no midline shifting. The bone windows are negative. IMPRESSION: Equivocal loss of headley-white differentiation in the left posterior parietal region. Consi maggie brain MRI in the appropriate clinical context. ACT 112: Negative or not required by law. The above report was generated using voice recognition software. It may contain grammatical, syntax o r spelling errors. Electronically signed by: Karolyn Castillo M.D. 10/31/2024 1:45 PM
[2024-10-31 13:54] LABS: Albumin Level 4.9 gm/dl (3.4-5.0); Bilirubin,Total 0.6 mg/dl (0.2-1.0); Calcium 10.4 mg/dl (8.6-10.3); Magnesium 1.5 mg/dl (1.7-2.4); Potassium 3.7 mmol/L (3.5-5.1)
[2024-10-31 14:00] LABS: Albumin Globulin Ratio 1.5 (0.9-2); BUN Creatinine Ratio 29.2 (10-20); Creatinine Clr Calc Pharmacy 76.6 ml/min; Globulin 3.2 gm/dl (2.5-4.0); Total Protein 8.1 gm/dl (6.0-8.3)
--- NOTE | 2024-10-31 14:00 | Electrocardiogram Report ---
Test Reason : Blood Pressure : */* mmHG Vent. Rate : 80 BPM Atrial Rate : 80 BPM P-R Int : 156 ms QRS Dur : 88 ms QT Int : 378 ms P-R-T Axes : 64 37 37 degrees QTcB Int : 435 ms Sinus rhythm with occasional Premature ventricular complexes Poor R wave progression, consider anterior TN vs. lead placement vs. LVH Abnormal ECG When compared with ECG of 29-Oct-2020 14:02, Premature ventricular complexes are now Present Confirmed by Alexander Muñiz ([id number]) on 10/31/2024 2:00:12 PM Referred By: REFERRED SELF Confirmed By: Alexander Muñiz
[2024-10-31 14:03] LABS: Troponin I High Sensitivity 2.8 pg/ml (0-14)
[2024-10-31 14:05] LABS: Partial Thromboplastin Ratio 0.9; Partial Thromboplastin Time 25 Seconds (21-31); Prothrombin Time 10.4 Seconds (9.0-12.0)
[2024-10-31 14:15] LABS: D Dimer 580 ug/L FEU (0-500)
[2024-10-31] MEDS: MAGNESIUM SULFATE / D5W 1 GM/100 ML BAG IV STA (14:33)
[2024-10-31 14:54] LABS: Appearance Urine Clear (Clear); Bilirubin Urine Negative (Negative); Blood Urine Negative (Negative); Color Urine Yellow; Glucose Urine UA Negative (Negative); Ketones Urine Negative (Negative); Leukocyte Esterase Urine Negative (Negative); Nitrite Urine Negative (Negative); Protein Urine Negative (Negative); Specific Gravity Urine 1.013 (1.000-1.030); Urobilinogen Urine Negative (Negative)
[2024-10-31] MEDS: KETOROLAC 30 MG/ML VIAL IV ONE (16:09)
--- NOTE | 2024-10-31 16:30 | History & Physical Report ---
Date of Service October 31, 2024 Assessment & Plan (1) Headache: (2) Type 2 diabetes mellitus: (3) Hypothyroidism: (4) HTN (hypertension): Plan 64-year-old female history of headache and dizziness presents with abnormal CT scan of head. #Rule out stroke. Patient will have an MRI and MRA a of her neck. She started on aspirin 325 will continue on her daily aspirin and atorvastatin. Sternal risks factors include her diabetes. Hypertension. #Possible sinus congestion patient will be given 1 dose of prednisone in the urgency department will be given Mucinex and nasal saline. She does not appear to have any infectious symptoms at this time antibiotics not be started #Diabetes patient will have her metformin held especially with her CTA performed this might be restarted for 3 days. If her glucose is out of control we will employ sliding scale insulin #Hypertensionpatient to be going triamterene-hydrochlorothiazide. 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 She presents with having a headache and dizziness at work which is described as not vertiginous. She has had intermittent problems with feeling dizzy or instability of her balance for some time and most recently is worrying about sinus pressure or discomfort. Per evaluation involve the CTA of her head and there was some concern of headley-white matter loss of differentiation which could be an early warning sign of stroke. Patient has no other focal neurological deficits problems with asymmetric face or speech or swallowing. Patient is recommended for admission for concern for stroke and equivocally will begin consideration of symptomatic treatment of sinus congestion and pressure Otherwise patient denies any other changes in her physical body no recent fevers no recent upper respiratory infections other than the nasal congestion no chest pain or pressure shortness of breath Allergies Allergy/AdvReac Type Severity Reaction Status Date / Time cefadroxil [From Duricef] Allergy Severe ANAPHYLAXIS Verified 10/31/24 14:31 Cephalosporins Allergy Severe CEFADROXIL- Verified 10/31/24 14:31 ANAPHYLACTI C Home Medications Medication Instructions Recorded Confirmed Type calcium 600 mg (as 1 cap PO HS 01/20/19 10/31/24 History carbonate)-vitamin D3 5 mcg (200 unit) capsule (Calcium 600 + D(3)) aspirin 81 mg tablet,delayed 81 mg PO HS 10/26/20 10/31/24 History release (Sonia Low Dose Aspirin) albuterol sulfate 90 mcg/actuation 1 - 2 puff inhalation Q4 PRN 08/08/23 10/31/24 Rx aerosol inhaler (Ventolin HFA) Shortness Of Breath Or Wheezing #6.7 grams atorvastatin 40 mg tablet 40 mg PO HS #90 tabs 07/26/24 10/31/24 Rx duloxetine 60 mg capsule,delayed 60 mg PO QAM #90 caps 07/26/24 10/31/24 Rx release (Cymbalta) levothyroxine 100 mcg tablet 100 mcg PO QAM #90 tabs 07/26/24 10/31/24 Rx metformin 1,000 mg tablet 1,000 mg PO BID #180 tabs 07/26/24 10/31/24 Rx oxybutynin chloride 10 mg 10 mg PO DAILY #90 tabs 07/26/24 10/31/24 Rx tablet,extended release 24 hr omega 6-tet-agt-fish oil 900 1 cap PO QAM 10/31/24 10/31/24 History mg-1,400 mg capsule,delayed release triamterene 37.5 0.5 tab PO Q OTHER DAY 10/31/24 10/31/24 History mg-hydrochlorothiazide 25 mg tablet Past Med/Surg History Problem List (Updated 10/31/24 @ 16:27 by Nathan Sheldon MD) Headache History of artificial eye lens Anxiety HTN (hypertension) Inconclusive mammogram Ureteral stricture, right Encounter for pre-operative examination Routine health maintenance (Chronic) Encounter for annual routine gynecological examination Left knee pain Hydronephrosis concurrent with and due to calculi of kidney and ureter Bilateral nephrolithiasis Urge incontinence (Chronic) Type 2 diabetes mellitus (Chronic) Peripheral neuropathy (Chronic) Hypothyroidism (Chronic) Edema (Acute) Dyslipidemia (Chronic) Depression (Acute) Arthralgia of multiple sites (Acute) Medical History History of kidney stones Temporomandibular joint disorder Exercise-induced asthma Surgical History History of cataract surgery History of carpal tunnel release of both wrists Status post trigger finger release History of lithotripsy (~2006) History of salpingo-oophorectomy History of tonsillectomy and adenoidectomy History of tooth extraction History of wisdom tooth extraction S/P colonoscopy H/O arthroscopy of knee History of hysteroscopy H/O dilation and curettage Family History Family/Other No problems noted. Mother Myocardial infarction Family history of reaction to anesthesia Father Family history of diabetes mellitus Denies family history of Ovarian cancer Prostate cancer Breast cancer Colorectal cancer Social History Smoking Status: Former smoker Tobacco Type: Cigarettes Age Started Using Tobacco: 14; Age Quit Using Tobacco: 51; packs per day: 0.9; Smoking End Date: 12 years ago; Second Hand Exposure: Yes (parents smoked/ex and children all smoke); Do You Dip or Chew Tobacco: No; Hx Alcohol Use: Yes Alcohol type: beer Hx Substance Use: No Preferred Language: Turkish Communication Ability: Effective [place] Room Worker Required: No Beliefs That Will Affect Care: None marital status: Current Living Situation: Family Current Living Situation Comment: lives at home with pets current occupational status: employed 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 How many Children do You have: 3 Other Information That Helps Us Care for You: No Feels Safe at Home: Yes Safety Concerns: Feels Safe At This Time Childhood Exposure to Second-Hand Smoke: Yes Diet: regular caffeine: Yes Dental Care, Regularly: Yes Physical Activity Frequency: Does not Exercise Seatbelt Use: always Sunscreen Use: Yes Assistive Devices: None Review of Systems Review of Systems: Mild distress and fatigue Bifrontal headache not positional unremitting Complains of feeling of sinus congestion but not with production of mucus no positional change of pain no speech or swallowing issues no chest pain, pressure or palpitations no shortness of breath, cough or wheezes no abdominal pain, nausea or vomiting, diarrhea or constipation no dysuria, hematuria or frequency no focal joint pain or swelling no back pain, CVA tenderness or radicular pain no bruising, bleeding or rashes no focal signs of weakness or numbness or altered sensation no complaints of anxiety or depression.. Physical Exam Physical Exam: The patient appeared well nourished and normally developed. Vital signs as documented. Head exam is normocephalic atraumatic Neck is without JVD, thyromegaly, or carotid bruits. Lungs are clear to auscultation, no focal loss of breath sounds Cardiac exam, Rhythm is regular.. No murmurs, rubs or gallops. Abdominal exam reveals normal bowel sounds, soft non tender, no masses Extremities are nonedematous and both pedal pulses are present Neurologic exam is alert and oriented, no focal loss of strength or sensation Skin is without bruises or rashes Psychologically is without concerns for anxiety or depression.. Results & Data Results & Data Vital Signs (Past 12 Hours) Vital Signs Temp Pulse Pulse Resp BP BP Pulse Ox 10/31/24 15:30 1 L 16 187/108 H 97 10/31/24 15:00 85 16 183/115 H 96 10/31/24 14:37 85 22 177/102 H 96 10/31/24 13:43 85 10/31/24 13:13 76 17 97 10/31/24 13:13 79 16 162/105 H 95 10/31/24 12:49 97.5 F L 81 18 182/106 H 96 O2 Del Method 10/31/24 15:30 Room Air 10/31/24 15:00 10/31/24 14:37 Room Air 10/31/24 13:43 10/31/24 13:13 Room Air 10/31/24 13:13 Room Air 10/31/24 12:49 Room Air Code Status & VTE Plan VTE Prophylaxis Plan VTE Prophylaxis will be ordered: Yes PG Care Time/CCT Total # of Minutes Spent Total Time Spent with Patient: Total time spent is greater than 50% in coordination of care (as documented) at patient's floor/unit and/or counseling patient: Coding Level of Care Code 76491 INT INP/OBS CARE 2/55MIN Diagnoses Headache R51.9 Type 2 diabetes mellitus with diabetic polyneuropathy, without long-term current use of insulin E11.42 Diabetes mellitus complication detail: with polyneuropathy Diabetes mellitus complication status: with neurologic complications Diabetes mellitus nursing home insulin use: without termite control technician use Acquired hypothyroidism E03.9 Hypothyroidism type: acquired HTN (hypertension) I10 (2) Type 2 diabetes mellitus Diabetes mellitus complication detail: with polyneuropathy Diabetes mellitus complication status: with neurologic complications Diabetes mellitus nursing home insulin use: without termite control technician use Qualified Code(s): E11.42 - Type 2 diabetes mellitus with diabetic polyneuropathy (3) Hypothyroidism Hypothyroidism type: acquired Qualified Code(s): E03.9 - Hypothyroidism, unspecified
[2024-10-31] MEDS ORDERED: SODIUM CHLORIDE 0.65% NA SOLN 45 ML (OCEAN) PRN (17:54)
[2024-10-31] MEDS ORDERED: ALBUTEROL HFA 8 GM INHALER INH PRN (17:54)
[2024-10-31] MEDS ORDERED: ONDANSETRON INJ 2 MG/ML 2 ML VIAL IV PRN (17:54)
--- NOTE | 2024-10-31 18:37 | Magnetic Resonance Report ---
MRI BRAIN WITHOUT CONTRAST TECHNIQUE: An MRI examination of the brain was performed utilizing sagittal and axial T1-weighted images as well as axial T2-weighted, FLAIR, gradient echo and diffusion-weighted images. INDICATION: Headaches COMPARISON: None FINDINGS: The ventricular, sulcal and cisternal spaces are normal in caliber. There is no evidence of intracranial mass lesion, hydrocephalus, infarct, extra-axial fluid collection, restricted diffusion or parenchymal hemorrhage. Cerebral volume loss with expected ex vacuo dilatation of the ventricles, the basilar cisterns and prominent sulci. Periventricular and subcortical white matter T2/FLAIR hyperintensities are nonspecific but are typically seen in the setting of chronic small vessel ischemic changes. The cerebellar tonsils are normal in position. The pituitary gland is not enlarged. The major arterial vascular structures of the skull base are patent. No intraorbital soft tissue mass lesion is observed. The visualized paranasal sinuses are aerated. Trace left mastoid fluids. IMPRESSION: No acute intracranial process detected. Chronic findings as above Electronically signed by Xavier Gonzalez 10-31-2024 6:36 PM
--- NOTE | 2024-10-31 19:17 | Magnetic Resonance Report ---
MRA NECK: INDICATION: Headaches TECHNIQUE: An MR angiogram of the extracranial carotid and vertebral arteries was performed using 2D and 3D [id number] technique. Multi oblique maximum intensity projection reformatted images were obtained and reviewed as well as the source images. FINDINGS: NECK: Right ICA: No hemodynamically significant stenosis. Left ICA: No hemodynamically significant stenosis. Right vertebral artery: No hemodynamically significant stenosis. Left vertebral artery: Right dominant vertebral artery configuration with hypoplastic left vertebral artery. The intradural segment of the left vertebral artery is not seen, which may be due to its hypoplastic nature although superimposed stenosis/occlusion difficult to exclude. OTHER: None. IMPRESSION: Patent carotid arteries. Right dominant vertebral artery configuration with hypoplastic left vertebral artery. The intradural segment of the left vertebral artery is not seen, which may be due to its hypoplastic nature although superimposed stenosis/occlusion difficult to exclude. Note: Internal carotid artery stenosis reported are based on the distal internal carotid artery as a reference as used in the 1998 NASCET study. Mild stenosis: <50% Moderate stenosis: 50-69% Severe stenosis: 70-99% Electronically signed by Xavier Gonzalez 10-31-2024 7:17 PM
[2024-10-31] MEDS: MAGNESIUM SULFATE / D5W 1 GM/100 ML BAG IV ONE (19:57)
[2024-10-31] MEDS: LABETALOL HCL IV 5 MG/ML 20ML IV STA (19:58)
[2024-10-31] MEDS: HEPARIN SOD 5,000 UNIT/0.5 ML VIAL SQ SCH (20:03)
[2024-10-31] MEDS: guaiFENesin 600 MG TABCR PO SCH (20:04)
[2024-10-31] MEDS: CALCIUM 600MG + VIT D 400 IU TAB PO SCH (20:04)
[2024-10-31] MEDS: ACETAMINOPHEN 325 MG TAB PO PRN (20:06)
[2024-10-31] MEDS ORDERED: hydrALAZINE HCL 20 MG/ML VIAL IV PRN (20:33)
[2024-10-31] MEDS: predniSONE 20 MG TAB PO ONE (21:25)
[2024-10-31] MEDS: ASPIRIN 325 MG ECTAB PO ONE (21:25)
[2024-10-31] MEDS: ATORVASTATIN 40 MG TAB PO SCH (21:26)
--- OUTSIDE RECORDS SUMMARY | 2024-10-31 23:15 | External Medical Summary | Summary of Care ---
Author Name Unknown Organization [facility] Address [address] [place] [address] Phone [phone] Care Team Providers Care Chief Lock Operator Name Role Phone Judith Hayes MD Primary Care Provider [phone] Encounter Details Date Type Department Care Team (Late st Contact Info) Description 08/23/2024 Population Health External Data Unspecified Department Allergies Active Allergy Reactions Criticality Noted Date Comments Cephalosporins 08/10/2005 documented as of this encounter (statuses as of 08/23/2024) Medications LEVOTHYROXINE SODIUM 100 MCG OR TABS 1 tablet by mouth daily Active metFORMIN ER (GLUCOPHAGE XR) 500 MG TB24 2 times a day. Active Aspirin 81 MG Oral Tablet Delayed ReleaseIndicati ons:takes at night daily. Indications: takes at night Active Calcium-Vitamin D-Vitamin K 500-1000-40 MG-UNT-MCG Oral Tablet Chewable Take 1 Tablet by mouth in the morning. Active DULoxetine HCl 60 MG Oral Capsule Delayed Release Particles Take 1 Capsule by mouth in the morning. Active Atorvastatin Calcium 20 MG Oral Tablet (LIPITOR)Indica tions:takes at night Take 1 Tablet by mouth in the morning. Active Glimepiride 2 MG Oral Tablet Take 1 Tablet by mouth daily before breakfast. Active Fish Oil 1000 MG Oral Capsule Take 1 Capsule by mouth in the morning. Active Oxybutynin Chloride ER 10 MG Oral Tablet Extended Release 24 Hour (Ditropan XL) Take 1 Tablet by mouth in the morning. Active documented as of this encounter (statuses as of 08/23/2024) Active Problems Problem Noted Date Diagnosed Date Pre-op testing 07/04/2006 Obesity, Class I, BMI 30.0-34.9 (see actual BMI) 07/04/2006 Calculus of kidney 08/10/2005 Abdominal pain, right upper quadrant documented as of this encounter (statuses as of 08/23/2024) Immunizations Name Administration Dates Next Due Seasonal Influenza Vac., MDV, IM, 0.5 mL (Fluzon e) 05/15/2007 documented as of this encounter Social History Tobacco Use Types Packs/Day Years Used Date Smoking Tobacco: Former Cigarettes 0.5 20 0 09/01/1988 - 09/01/2008 Alcohol Use Standard Drinks/Week Comments Yes 0 (1 standard drink = 0.6 oz pur e alcohol) rare beer Comments No Sex and Gender Information Value Date Recorded Sex Assigned at Not on file Legal Sex Female 7:19 AM EST Gender Identity Not on file Sexual Orientation Not on file 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 Not on file Not on file Not on file documented as of this encounter Plan of Treatment Scheduled Procedures Name Priority Associated Diagnoses Date/Ti me COLONOSCOPY FLEXIBLE PROXIMAL DIAGNOSTIC Recall History of colon polyps Health Maintenance Due Date Last Done Comments Lipid Panel 1958 Depression Screening 1970 Hepatitis C Screening 01/29/1976 Mammogram 1998 DTap/Tdap Vaccines (1 - Tdap) 03/06/1999 03/05/1999 Cologuard 2003 Fecal Occult Blood Test 2003 Sigmoidoscopy 2003 Pneumococcal Vaccine: 50+ Years (1 of 1 - PCV) 01/29/2008 Zoster Vaccines (1 of 2) 01/29/2008 TSH 04/10/2010 04/10/2009, 1008/2006, 07/04/2006 DXA Scan 2023 Diabetes Screening 08/12/2023 08/12/2020, 0 02/08/2007, 07/04/2006, Additional history exists COVID-19 Vaccine ( - 2023- season) 2024 Influenza Vaccine (FLU shot) (#1) 2024 05/15/2007 Colonoscopy 08/12/2027 08/12/2020, 08/01, 05/26/2015, Additional history exists Colorectal Cancer Screening 08/12/2027 RETIRED - COLONOSCOPY-EVERY 5 YRS AGES 18-100 Discontinued 08/12/2020, 08/12/2020, 05/26/2015, Additional history exists HPV (Gardasil) Vaccine Aged Out No lo nger eligible based on patient's age to complete this topic Hepatitis B Vaccine Aged Out No longe r eligible based on patient's age to complete this topic MENINGOCOCCAL (MENACTRA/MENVEO) Aged Out No longer eligible based on patient's age to complete this topic documented as of this encounter Medical Devices Implanted Type Area Placement Specialist Device Identifier Shelf Expiration Date Model / Serial / Lot [id number] Panoptix Implanted:Qty: 1 on 07/13/2022 by Skip Duran MD at OR [facility] Left: Eye 09/17/2024 TFAT00 / [id number] / Iol Tfat00 +21.5d Implanted:Qty: 1 on 08/10/2022 by Skip Duran MD at OR [facility] Right: Eye MAGALY 09/23/2024 TFAT00 +21.5D / [id number] / documented as of this encounter Advance Directives * No Code (Latest Code Status on File) Date Activated Date Inactivated Comments 08/10/2022 6:36 AM 08/10/2022 12:46 PM This order reflects the patients wishes and were consensually agreed upon. Question Answer Comments Discussion of Advance Directives occurred with: Patient Does the patient have a Living Will? No Does the patient have Health Care Power of Attor keely? No * No Code Date Activated Date Inactivated Comments 07/13/2022 7:23 AM 07/13/2022 1:20 PM This order reflects the patients wishes and were consensually agreed upon. Question Answer Comments Discussion of Advance Directives occurred with: Patient Does the patient have a Living Will? No Does the patient have Health Care Power of Attor keely? No Care Teams Chief Lock Operator Relationship Specialty Start Date End Date Judith [facility] [address] [facility] [address] PCP - General Family Medicine 06/04/20 documented as of this encounter
[2024-11-01] MEDS: LEVOTHYROXINE SODIUM 100 MCG TABLET PO SCH (05:40)
[2024-11-01 08:26] VITALS: BP 169/82; PULSE 69; RESP 18; TEMP 97.7; O2SAT 96
[2024-11-01] MEDS: DULoxetine HCL 60 MG CAP PO SCH (09:11)
[2024-11-01] MEDS: OXYBUTYNIN CHLORIDE XL 5 MG TABCR PO SCH (09:11)
--- NOTE | 2024-11-01 12:53 | Discharge Summary ---
Discharge Summary Date of Service November 01, 2024 Principal Dx & Hospital Course #1 = Principal Diagnosis (1) Headache: (2) Type 2 diabetes mellitus: (3) Hypothyroidism: (4) HTN (hypertension): Plan 64-year-old female history of headache and dizziness presents with abnormal CT scan of head. #Ruled out stroke. Patient did have no findings on her MRI and MRA a of her neck. so stroke is ruled out and symptoms most likely for sinusitis with headache will be continued on prednisone for 4 additional days and since was recently on augmentin will be dc on levaquin #Diabetes patient resume metfromin 11/02/24 #Hypertension triamterene-hydrochlorothiazide. 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 She presents with having a headache and dizziness at work which is described as not vertiginous. She has had intermittent problems with feeling dizzy or instability of her balance for some time and most recently is worrying about sinus pressure or discomfort. Per evaluation involve the CTA of her head and there was some concern of headley-white matter loss of differentiation which could be an early warning sign of stroke. Patient has no other focal neurological deficits problems with asymmetric face or speech or swallowing. Patient is recommended for admission for concern for stroke and equivocally will begin consideration of symptomatic treatment of sinus congestion and pressure Otherwise patient denies any other changes in her physical body no recent fevers no recent upper respiratory infections other than the nasal congestion no chest pain or pressure shortness of breath Discharge Exam awake and alert, no return of symptoms except mild sinus congestion Discharge Plan Discharge Items Patient Disposition: Home - Self-Care Reason For Visit: HEADACHE, DIZZINESS EVAL FOR CVA Discharge Diagnosis: sinus headache hypoplastic(congenitally small) left vertebral artery Activity: Resume your previous activity Non-emergency contact: Primary Care Provider Call non-emergency contact if: your symptoms worsen Follow-up/Referrals: Judith Hayes MD [Primary Care Provider] - 11/06/24 10:30 am (Hospital follow up scheduled November 06 at 10:00) Diet: Carb Consistent or DM2 Addtl Attending Provider Instructions: for your sinus congestion will have short burst of prednisone and course of antibiotics you were noted to have a small left vertebral artery, likely from and your right artery is larger to compensate, no specific treatment at this time other than your aspirin and atorvastatin Pending Studies at Discharge: No Stand-Alone Forms: My [facility] [employer], Smoking Cessation Medications and DC Order Prescriptions: New prednisone 20 mg tablet 40 mg PO DAILY 4 Days Qty: 8 0RF levofloxacin 500 mg tablet 500 mg PO DAILY 10 Days Qty: 10 0RF Continued albuterol sulfate [Ventolin HFA] 90 mcg/actuation HFA aerosol inhaler 1 - 2 puff inhalation Q4 PRN (Reason: Shortness Of Breath Or Wheezing) Qty: 6.7 4RF oxybutynin chloride 10 mg tablet extended release 24hr 10 mg PO DAILY Qty: 90 3RF duloxetine [Cymbalta] 60 mg capsule,delayed release(DR/EC) 60 mg PO QAM Qty: 90 3RF atorvastatin 40 mg tablet 40 mg PO HS Qty: 90 3RF levothyroxine 100 mcg tablet 100 mcg PO QAM Qty: 90 3RF metformin 1,000 mg tablet 1,000 mg PO BID Qty: 180 3RF Calcium 600 + D(3) 600 mg calcium- 200 unit capsule 1 cap PO HS aspirin [Sonia Low Dose Aspirin] 81 mg Tablet,Delayed Release (Dr/Ec) 81 mg PO HS omega 6-gmr-jgo-fish oil 900-1,400 mg Capsule,Delayed Release(Dr/Ec) 1 cap PO QAM triamterene-hydrochlorothiazid 37.5-25 mg tablet 0.5 tab PO Q OTHER DAY Discharge Orders: Discharge Order (Routine); Ordered 11/01/24 Ordered By: Nathan Sheldon Admission Data Admit Date/Time: 10/31/24 15:37 Attending Provider: Nathan Sheldon Admit Provider: Nathan Sheldon Primary Care Provider: Judith Hayes Other Providers: Nathan Sheldon Other Interventions: Discharge Summary Assessment (RN) Last Done: 11/01/24 10:33 Hospital Stay Data Consultations 10/31/24 15:18 ED Decision to Admit Stat Diagnostic Imagining Performed 10/31/24 12:55 CT head/brain wo con Stat 10/31/24 13:59 MRI Brain [MR brain wo con] Stat 10/31/24 15:37 MRI Angio Neck [MR angio neck wo con] Stat Pending Results Patient Have Any Pending Studies at Discharge: No Discharge Instructions Given to Patient (Per Discharging Provider) for your sinus congestion will have short burst of prednisone and course of antibiotics you were noted to have a small left vertebral artery, likely from and your right artery is larger to compensate, no specific treatment at this time other than your aspirin and atorvastatin Total Time Total Time Spent Total Time Spent (In Minutes): It required greater than 30 minutes to prepare this patient for discharge. Coding Level of Care Code 46629 INP/OBS DISCH >30 MIN Diagnoses Headache R51.9 Type 2 diabetes mellitus with diabetic polyneuropathy, without long-term current use of insulin E11.42 Diabetes mellitus [facility] insulin use: without [facility] use Diabetes mellitus complication status: with neurologic complications Diabetes mellitus complication detail: with polyneuropathy Acquired hypothyroidism E03.9 Hypothyroidism type: acquired HTN (hypertension) I10
[2024-11-01] MEDS ORDERED: ASPIRIN 81 MG ECTAB PO SCH (21:00)
== END 2024-11-01 10:53 | disposition home or self-care (01) | DRG 153 ==
LOC: ED 12:42 → EDINP 15:37 → SUATTDRO 15:37 → 4W 18:37

== ENCOUNTER 2025-03-29 05:40 | Inpatient (IN) ==
--- NOTE | 2025-03-06 09:37 | PAT Medication Instructions ---
Medication Instructions Date of Service March 06, 2025 Home Medications Medication Instructions Recorded albuterol sulfate 90 mcg/actuation 1 - 2 puff inhalation Q4 PRN 08/08/23 aerosol inhaler (Ventolin HFA) Shortness Of Breath Or Wheezing #6.7 grams atorvastatin 40 mg tablet 40 mg PO HS #90 tabs 07/26/24 duloxetine 60 mg capsule,delayed 60 mg PO QAM #90 caps 07/26/24 release (Cymbalta) levothyroxine 100 mcg tablet 100 mcg PO QAM #90 tabs 07/26/24 metformin 1,000 mg tablet 1,000 mg PO BID #180 tabs 07/26/24 oxybutynin chloride 10 mg 10 mg PO DAILY #90 tabs 07/26/24 tablet,extended release 24 hr lisinopril 5 mg tablet 5 mg PO DAILY #30 tabs 11/06/24 hydrochlorothiazide 12.5 mg tablet 12.5 mg PO DAILY #30 tabs 11/15/24 celecoxib 100 mg capsule (Celebrex) 100 mg PO BID #60 caps 02/13/25 calcium 600 mg (as carbonate)-vitamin D3 5 mcg (200 unit) capsule (Calcium 600 + D(3)) 1 cap PO HS aspirin 81 mg tablet,delayed release (Sonia Low Dose Aspirin) 81 mg PO HS albuterol sulfate 90 mcg/actuation aerosol inhaler (Ventolin HFA) 1 - 2 puff inhalation Q4 PRN atorvastatin 40 mg tablet 40 mg PO HS duloxetine 60 mg capsule,delayed release (Cymbalta) 60 mg PO QAM levothyroxine 100 mcg tablet 100 mcg PO QAM metformin 1,000 mg tablet 1,000 mg PO BID oxybutynin chloride 10 mg tablet,extended release 24 hr 10 mg PO DAILY omega 9-hwx-qhv-fish oil 900 mg-1,400 mg capsule,delayed release 1 cap PO QAM lisinopril 5 mg tablet 5 mg PO DAILY hydrochlorothiazide 12.5 mg tablet 12.5 mg PO DAILY celecoxib 100 mg capsule (Celebrex) 100 mg PO BID ASK your surgeon for instructions celecoxib 100 mg capsule (Celebrex) 100 mg PO BID ASK your prescriber and surgeon aspirin 81 mg tablet,delayed release (Sonia Low Dose Aspirin) 81 mg PO STOP taking 2 weeks before surgery (or as soon as possible if surgery is within 2 weeks) omega 0-hpb-rmx-fish oil 900 mg-1,400 mg capsule,delayed release 1 cap PO QAM DO NOT take the morning of surgery metformin 1,000 mg tablet 1,000 mg PO BID oxybutynin chloride 10 mg tablet,extended release 24 hr 10 mg PO DAILY lisinopril 5 mg tablet 5 mg PO DAILY hydrochlorothiazide 12.5 mg tablet 12.5 mg PO DAILY Take morning of surgery With a small sip of water, OTHERWISE NOTHING TO EAT OR DRINK AFTER MIDNIGHT: albuterol sulfate 90 mcg/actuation aerosol inhaler (Ventolin HFA) 1 - 2 puff inhalation Q4 PRN(use if needed; please bring with you to hospital day of surgery if possible) duloxetine 60 mg capsule,delayed release (Cymbalta) 60 mg PO QAM levothyroxine 100 mcg tablet 100 mcg PO QAM Take evening before surgery calcium 600 mg (as carbonate)-vitamin D3 5 mcg (200 unit) capsule (Calcium 600 + D(3)) 1 cap PO HS albuterol sulfate 90 mcg/actuation aerosol inhaler (Ventolin HFA) 1 - 2 puff inhalation Q4 PRN(if needed) atorvastatin 40 mg tablet 40 mg PO HS metformin 1,000 mg tablet 1,000 mg PO BID Other Notes If you have any questions please call us at [phone] or [phone] or [phone] or [phone]
--- NOTE | 2025-03-11 09:42 | Anesthesiology Consultation ---
Date of Service March 11, 2025 Assessment & Plan (1) Encounter for pre-operative examination: - Check [facility] DOS - Infectious disease screening: Per assessment on 03/11/25- No known recent infectious disease contacts. Previous fever, diarrhea, muscle/body ache with symptom onset 02/28/25. Symptoms resolved as of PAT RN phone interview 03/04/25. Symptom onset was > 10 days prior to DOS. Patient aware to contact PAT/surgeon if development of infectious-related symptoms prior to surgery. Nothing further needed at this time. - [facility] PCP note (03/01/25): "chronic medical problems are well controlled, including diabetes, pt medically optimized for procedure.. low risk.." Chart Review Chart Review: Acceptable Risk for Surgery and Patient seen in Pre Admission Testing Teaching & Discussion Pre-Anesthesia Teaching/Discussion Notes: Instructed NPO after midnight before surgery,except medications with 15 cc of water. Medication instructions provided according to the PAT guidelines. History Surgery Operation Date: 03/29/25 07:30 Proposed Procedures p C4-C5, C5-C6, C6-C7 Anterior Cervical Discectomy and Fusion, Spinal Cord Monitoring - Robbie Morales MD Height/Weight Height: 5 ft 5 in Weight: 64.6 kg Allergies Allergy/AdvReac Type Severity Reaction Status Date / Time cefadroxil [From Duricef] Allergy Severe Anaphylaxis Verified 03/08/25 15:44 Cephalosporins Allergy Severe Anaphylaxis Verified 03/08/25 15:44 (Cefadroxil) Medications Home Medications Medication Instructions Recorded Confirmed Last Taken calcium 600 mg (as 1 cap PO HS 01/20/19 03/04/25 10/31/24 carbonate)-vitamin D3 5 mcg (200 unit) capsule (Calcium 600 + D(3)) aspirin 81 mg tablet,delayed 81 mg PO HS 10/26/20 03/04/25 10/30/24 release (Sonia Low Dose Aspirin) atorvastatin 40 mg tablet 40 mg PO HS #90 tabs 07/26/24 03/04/25 10/30/24 duloxetine 60 mg capsule,delayed 60 mg PO QAM #90 caps 07/26/24 03/04/25 10/31/24 release (Cymbalta) levothyroxine 100 mcg tablet 100 mcg PO QAM #90 tabs 07/26/24 03/04/25 10/31/24 metformin 1,000 mg tablet 1,000 mg PO BID #180 tabs 07/26/24 03/04/25 10/31/24 oxybutynin chloride 10 mg 10 mg PO DAILY #90 tabs 07/26/24 03/04/25 10/31/24 tablet,extended release 24 hr omega 1-tgt-iwn-fish oil 900 1 cap PO QAM 10/31/24 03/04/25 10/31/24 mg-1,400 mg capsule,delayed release celecoxib 100 mg capsule (Celebrex) 100 mg PO BID #60 caps 02/13/25 03/04/25 Unknown albuterol sulfate 90 mcg/actuation 1 - 2 puff inhalation Q4 PRN 03/07/25 Unknown aerosol inhaler (Ventolin HFA) Shortness Of Breath Or Wheezing #6.7 grams hydrochlorothiazide 12.5 mg tablet 12.5 mg PO DAILY #30 tabs 03/07/25 Unknown lisinopril 5 mg tablet 5 mg PO DAILY #30 tabs 03/07/25 Unknown Past Medical History Medical History Anxiety Arthralgia of multiple sites Cervical kyphosis Cervical spinal stenosis Depression Dyslipidemia Exercise-induced asthma Herniated cervical disc History of kidney stones HTN (hypertension) Hypothyroidism Left arm weakness R/t current cervical issues Paresthesia and pain of both upper extremities Peripheral neuropathy Feet Temporomandibular joint disorder Occasional clicking (w/certain foods, no locking) Type 2 diabetes mellitus Exercise / Class Metabolic Activity II 4-5 Yardwork/Stairs/Walk up hill (one FS: No CP, no SOB) Past Family History Family History Family/Other No problems noted. Mother Myocardial infarction Family history of reaction to anesthesia difficulty waking Father Family history of diabetes mellitus Denies family history of Ovarian cancer Prostate cancer Breast cancer Colorectal cancer Past Surgical History Surgical History H/O arthroscopy of knee Left H/O dilation and curettage History of carpal tunnel release of both wrists History of cataract surgery R/L History of cystoscopy 2020 History of hysteroscopy 2013, PMB on HRT History of lithotripsy (~2006) with stent placement History of salpingo-oophorectomy History of tonsillectomy and adenoidectomy History of tooth extraction History of wisdom tooth extraction S/P colonoscopy last 08/2020 hx of polypectomy Status post trigger finger release x5 Past Anesthesia History No Hx of Anesthesia Complications Mother: Difficulty waking History of PONV No Hx of PONV and No Hx of Motion Sickness Social History Smoking Status: Former smoker Do You Dip or Chew Tobacco: No Smoking End Date: Quit 2011 Hx Alcohol Use: Yes Alcohol type: beer alcohol intake frequency: a few times a week Hx Substance Use: No substance use type: does not use Review of Systems Patient denies chest pain, shortness of breath, dyspnea on exertion, fever, chills, cough, wheezing. Physical Exam Vital Signs BP 101/69 P 82 TEMP 98.3 SP02 98%RA RESP 16 Physical Full cervical extension range of motion. Full TMJ range of motion. TMD 3 finger breaths Mallampati Score III Dentition: several missing (sides) Lungs: clear throughout to auscultation Cardiac: regular rate and rhythm, no murmurs noted Spine: normal Carotid arteries: negative bruit Extremities: no LE edema Lab Results Anesthesia Preop Results Results Anesthesia Widget: WBC 7.92 K/ul (4.8-10.8) 03/11/25 Hgb 14.2 g/dl (12.0-16.0) 03/11/25 Hct 40.9 % (37.0-47.0) 03/11/25 Plt 304 K/uL (130-400) 03/11/25 Na 138 mmol/L (136-145) 03/11/25 K 4.5 mmol/L (3.5-5.1) 03/11/25 Cl 102 mmol/L (98-107) 03/11/25 CO2 28 mmol/L (21-32) 03/11/25 BUN 16 mg/dl (6-23) 03/11/25 Creat 0.68 mg/dl (0.6-1.2) 03/11/25 Glucose Level 100 mg/dl (70-99(Fasting)) H 03/11/25 PT 10.4 Seconds (9.0-12.0) 03/11/25 PTT 26 Seconds (21-31) 03/11/25 INR 1.0 (0.9-1.1) 03/11/25 TSH 0.235 uIu/ml (0.300-4.500) L 03/11/25 Free T4 0.99 ng/dl (0.61-1.60) 03/11/25 HA1c 6.0 % (4.5-5.6) H 03/11/25 Blood Type B Positive 03/11/25 Antibody Screen NEGATIVE 03/11/25 Testing Electrocardiogram Date: 10/31/24 SR with occasional PVCs. 80bpm. PRWP, consider anterior ME vs lead placement vs LVH. Compared to 10/29/2020 ECG, PVCs now present per cardiology comparison. Chest X-Ray Date: 10/31/24 FINDINGS: Spondylotic spurring of the spine. Cardiomediastinal and hilar silhouettes are within normal limits. No pneumothorax, pleural effusion, airspace consolidation or pulmonary edema. Bones appear grossly intact. IMPRESSION: No acute process. Other Testing Neck MRA Date: 10/31/24 FINDINGS: NECK: Right ICA: No hemodynamically significant stenosis. Left ICA: No hemodynamically significant stenosis. Right vertebral artery: No hemodynamically significant stenosis. Left vertebral artery: Right dominant vertebral artery configuration with hypoplastic left vertebral artery. The intradural segment of the left vertebral artery is not seen, which may be due to its hypoplastic nature although superimposed stenosis/occlusion difficult to exclude.
[2025-03-29] MEDS: LR 60ML/HR IV SCH (05:53)
[2025-03-29] MEDS: VANCOMYCIN HCL 1,000 MG/270 ML BAG IV SCH (06:27)
[2025-03-29] MEDS ORDERED: ONDANSETRON INJ 2 MG/ML 2 ML VIAL IV PRN ×2 (06:39→13:51)
[2025-03-29] MEDS ORDERED: ATROPINE SULFATE 0.1 MG/ML 10ML SYR IV PRN (06:39)
[2025-03-29] MEDS: LR 15ML/HR IV SCH (06:42)
[2025-03-29] MEDS: ACETAMINOPHEN 500 MG TAB PO SCH (06:42)
[2025-03-29] MEDS ORDERED: PHENYLEPHRINE HCL 10 MG/ML VIAL ONE (06:43)
[2025-03-29] MEDS ORDERED: PROPOFOL IV EMULSION 10 MG/ML 100 ML VIAL IV ONE ×2 (06:51→10:22)
[2025-03-29] MEDS ORDERED: REMIFENTANIL HCL 1 MG VIAL IV ONE ×3 (06:55→10:19)
[2025-03-29] MEDS ORDERED: PROPOFOL IV EMULSION 10 MG/ML 20 ML VIAL IV ONE (07:13)
[2025-03-29] MEDS ORDERED: LIDOCAINE 2% 2 ML VIAL/AMP(20MG/ML) INFIL ONE (07:18)
[2025-03-29] MEDS ORDERED: MIDAZOLAM HCL 1 MG/ML 2ML VIAL ONE (07:19)
--- NOTE | 2025-03-29 07:29 | History & Physical Bridge Note ---
Date of Service March 29, 2025 History & Physical Bridge Note I have examined the patient, reviewed the History & Physical and in the interval since the performance of the History & Physical I have noted the following changes of clinical significance: no changes noted Plan for ACDF c4-7
[2025-03-29] MEDS ORDERED: SUCCINYLCHOLINE 100MG/5ML SYR IV ONE (07:42)
[2025-03-29] MEDS ORDERED: DEXAMETHASONE SOD INJ 4 MG/ML VIAL ONE (08:56)
[2025-03-29] MEDS ORDERED: SODIUM CHLORIDE 0.9% PF INJ 10 ML VIAL ONE ×2 (09:00→10:22)
[2025-03-29] MEDS ORDERED: ONDANSETRON INJ 2 MG/ML 2 ML VIAL ONE (10:22)
[2025-03-29] MEDS ORDERED: HYDROmorphone INJ 2 MG/ML SYR/VIAL ONE (11:21)
[2025-03-29] MEDS ORDERED: DexMEDEtomidine HCL IV 100 MCG/ML VIAL IV ONE (11:24)
[2025-03-29] MEDS: VANCOMYCIN HCL 1000MG/20ML VIAL ONE (11:32)
[2025-03-29] MEDS: FLOSEAL HEMOSTATIC MATRIX 10ML TOP ONE (11:44)
--- NOTE | 2025-03-29 11:57 | Operative Report ---
PG Post Operative Report Pre & Post Diagnosis Operation Date: 03/29/25 07:30 Pre-Op Diagnosis: 1. C4-C5, C5-C6, C6-C7 Herniated Nucleus Pulposus 2. Kyphosis 3. Spinal Stenosis 4. Myelopathy Post-Op Diagnosis: 1. C4-C5, C5-C6, C6-C7 Herniated Nucleus Pulposus 2. Kyphosis 3. Spinal Stenosis 4. Myelopathy I identified the patient and participated in the time-out.: Yes Procedure Operation Date: 03/29/25 07:30 Actual Procedures 1. C4-5 anterior cervical decompression and fusion (28943). 2. C4-5 interbody spacer placement with arthrodesis (90298). 3. C5-6 anterior cervical decompression and fusion (36273). 4. C5-6 interbody spacer placement with arthrodesis (89509). 5. C6-7 anterior cervical decompression and fusion (). 6. C6-7 interbody spacer placement with arthrodesis (02371). 7. C4, C5, C6 and C7 anterior instrumentation (separate from interbody spacer) Instrumentation: Camber Spira Interbody, Camber Plate Surgeon Robbie Morales MD Garde Manager Rashid Peters PA-C Estimated Blood Loss 30 Findings Consistent with Post-Op Diagnosis Specimens None Drains Arnaldo Anesthesia Type General Complications none Disposition Disposition: Recovery Room Indications The patient has suffered from severe and unrelenting symptoms despite exhaustive conservative management. After discussing the benefits and risks of continued conservative management versus operative intervention, the patient elected to proceed with surgery. Description of Procedure Informed consent was obtained prior to the procedure. In the preoperative holding area, the patient's anterior neck was marked with a marking pen. The patient was taken to the operating room and anesthesia was initiated. The patient was placed supine on a regular operating room table. The neck was placed in a neutral position. All prominences were carefully padded. The anterior neck was prepped and draped in typical sterile fashion. Antibiotics were administered. A timeout was performed. Neuromonitoring was utilized, including somatosensory evoked potentials, running electromyography and motor evoked potentials. These remained stable throughout the case. A #10 blade was used to incise the skin. Bovie electrocautery was used to maintain meticulous hemostasis as dissection was completed through the subcutane ous and platysma. The interval between the sternocleidomastoid and the strap musculature was identified and bluntly dissected. The carotid sheath was palpated, retracted laterally and protected. The anterior cervical spine was identified and exposed. A spinal needle was placed into the disc space to confirm the appropriate levels using x-ray. The longus colli were carefully elevated off the anterior spine laterally. Care was taken to not dissect too laterally so as to protect the sympathetic chains. Anterior osteophytes were removed. Buchanan pins were placed and a small amount of distraction was applied across the C6-7 disc space. A total diskectomy along with bilateral foraminotomies were completed. The posterior longitudinal ligament was taken down. The central thecal sac and the bilateral C7 exiting nerve roots were confirmed to be completely decompressed. The endplates were prepared. Allograft was packed into an interbody spacer to encourage fusion. The interbody spacer was implanted. The caspar pins were moved and a small amount of distraction was applied across the C5-6 disc space. A total diskectomy along with bilateral foraminotomies were completed. The posterior longitudinal ligament was taken down. The central thecal sac and the bilateral C6 exiting nerve roots were confirmed to be completely decompressed. The endplates were prepared. Allograft was packed into an interbody spacer to encourage fusion. The interbody spacer was implanted. Buchanan pins were placed and a small amount of distraction was applied across the C4-5 disc space. A total diskectomy along with bilateral foraminotomies were completed. The posterior longitudinal ligament was taken down. The central thecal sac and the bilateral C5 exiting nerve roots were confirmed to be completely decompressed. The endplates were prepared. Allograft was packed into an interbody spacer to encourage fusion. The interbody spacer was implanted. An anterior cervical plate was selected and implanted. Screws were placed into the bodies of C4, C5, C6, C7. The screws were locked into the plate. X-rays were taken and confirmed appropriate spacer and hardware position. The wound was thoroughly irrigated. Meticulous hemostasis was achieved. A single drain was placed deep. The platysma and subcutaneous were closed using absorbable suture. The cutaneous was closed using a monofilament, absorbable suture. A sterile dressing was placed. At the end of the case, all instrument and sponge counts were correct. The patient was awakened from anesthesia without complication and taken to the PACU in stable condition. I attest to the content of the Intraoperative Record and any orders documented therein. Any exceptions are noted below.
--- NOTE | 2025-03-29 12:45 | Fluoroscopy Report ---
INTRAOPERATIVE RADIOGRAPHS CLINICAL HISTORY: C4-C7 spinal fusion. Fluoro time: 62 seconds Ka,r: 23.21 mGy FINDINGS: 7 spot fluoroscopic views of the cervical spine are presented. An endotracheal tube is in p lace. There is evidence of multilevel discectomy and anterior fusion in the mid to lower cervical reg ion. This is reportedly at C4-C7. The levels are difficult to delineate on the provided images. The o rthopedic hardware appears intact. A surgical drain is placed. IMPRESSION: Intraoperative images of the cervical spine as above. See operative report for detailed f indings. Electronically signed by: Robbie Muniz M.D. 03/29/2025 12:44 PM
--- NOTE | 2025-03-29 13:49 | Anesthesiology Progress Note ---
Date of Service March 29, 2025 Anesthesia Post Procedure Vital Signs Vital Signs: Temp Pulse Pulse Resp BP Pulse Ox O2 Del Method 03/29/25 13:44 36.6 C 82 16 158/92 H 94 Nasal Cannula 03/29/25 13:30 68 16 166/94 H 94 Nasal Cannula 03/29/25 13:20 36.7 C 77 16 160/89 H 95 Nasal Cannula 03/29/25 13:10 79 16 150/89 H 94 Nasal Cannula 03/29/25 13:00 85 14 156/96 H 95 Nasal Cannula 03/29/25 12:50 85 14 163/92 H 95 Nasal Cannula 03/29/25 12:40 94 H 16 164/90 H 94 Nasal Cannula 03/29/25 12:30 86 16 155/97 H 98 Nasal Cannula 03/29/25 12:24 36.4 C L 117 H 24 184/107 H 94 Nasal Cannula 03/29/25 06:27 36.6 C 77 20 154/94 H 95 Room Air O2 Flow Rate 03/29/25 13:44 2 03/29/25 13:30 3 03/29/25 13:20 3 03/29/25 13:10 3 03/29/25 13:00 3 03/29/25 12:50 3 03/29/25 12:40 4 03/29/25 12:30 4 03/29/25 12:24 4 03/29/25 06:27 Pain Intensity Left Shoulder: Pain Intensity: 2 Transfer of Care Handoff Completed per policy Notes Mental Status: alert / awake / arousable Patient Amnestic to Procedure: Yes Nausea / Vomiting: adequately controlled Pain: adequately controlled Airway Patency, RR, SpO2: stable & adequate BP & HR: stable & adequate Hydration State: stable & adequate Anesthetic Complications: no major complications apparent and Pt Satisfied with anesthetic care
[2025-03-29] MEDS ORDERED: dexAMETHasone 8 MG in SYRINGE 0 ML IV PRN (13:51)
[2025-03-29] MEDS ORDERED: DO NOT ADMINISTER PNEUMOCOCCAL VACCINE PRN (13:51)
[2025-03-29] MEDS ORDERED: SOD PHOSPHATE/SOD BIPHOSPHATE ENEMA 132 ML BTL PR PRN (13:51)
[2025-03-29] MEDS ORDERED: PROMETHAZINE 12.5 MG/50.5 ML BAG IV PRN (13:51)
[2025-03-29] MEDS ORDERED: ACETAMINOPHEN 1,000 MG/100 ML VIAL IV PRN (13:51)
[2025-03-29] MEDS ORDERED: DO NOT ADMINISTER FLU VACCINE PRN (13:51)
[2025-03-29] MEDS ORDERED: LORazepam 0.5 MG TAB PO PRN (13:51)
[2025-03-29] MEDS ORDERED: NALOXONE HCL 0.4 MG/1 ML VIAL/CARP IV PRN (13:51)
[2025-03-29] MEDS ORDERED: MAGNESIUM HYDROXIDE SUSP 30 ML UDC PO PRN (13:51)
[2025-03-29] MEDS ORDERED: diphenhydrAMINE Capsule 25 MG CAP PO PRN (13:51)
[2025-03-29] MEDS ORDERED: FAMOTIDINE 20 MG TAB PO PRN (13:51)
[2025-03-29] MEDS ORDERED: ALBUTEROL HFA 8 GM INHALER INH PRN (13:51)
[2025-03-29] MEDS ORDERED: METOCLOPRAMIDE HCL INJ 5 MG/ML 2 ML VIAL IV PRN (13:51)
[2025-03-29] MEDS ORDERED: RACEPINEPHRINE 2.25% NEBU SOLN 0.5 ML VIAL INH PRN (13:51)
[2025-03-29] MEDS ORDERED: ALUMINUM/MAGNESIUM SUSP 30 ML UDC PO PRN (13:51)
[2025-03-29] MEDS ORDERED: HYDROmorphone INJ 1 MG/ML SYRINGE IV PRN (13:51)
[2025-03-29] MEDS ORDERED: ONDANSETRON 4 MG OD TAB PO PRN (13:51)
[2025-03-29] MEDS ORDERED: ACETAMINOPHEN 500 MG TAB PO PRN (13:51)
[2025-03-29] MEDS ORDERED: VANCOMYCIN CONSULT ACTIVE PRN (13:51)
[2025-03-29] MEDS: dexAMETHasone 6 MG in SYRINGE 0 ML IV SCH (14:54)
--- NOTE | 2025-03-29 14:58 | Hospitalist Consultation ---
"Date of Consultation March 29, 2025 Assessment & Plan (1) Cervical myelopathy: (2) Hypertension: (3) Type 2 diabetes mellitus: Plan Priscila is a pleasant 65-year-old woman with PMH of T2DM, hypothyroidism, hyperlipidemia, urge incontinence, hypertension, myalgias, peripheral neurop athy. She presented for C4-C7 anterior cervical discectomy and fusion with Dr. Morales on 03/29/2025. Per review of operative report, EBL was listed as 30 cc, and there were no complications noted. #Cervical myelopathy | S/p C4-C7 discectomy and fusion - Pain control, VTE prophylaxis, activity level, discharge planning per primary team - CBC and BMP with AM labs #Hypertension - Hypertensive currently, suspect due to pain - Continue home BP regimen of lisinopril 5 mg daily and HCTZ 12.5 mg daily - Added IV hydralazine PRN with parameters #T2DM most recent A1c 6.0% in March 2025 - Pharmacy glycemic consult in place in setting of steroid use #Hypothyroidismcontinue Synthroid #Hyperlipidemiacontinue atorvastatin 40 mg HS #Urge incontinencecontinue oxybutynin #Myalgias | Peripheral neuropathycontinue [facility] will continue to follow. Please reach out with any questions or concerns. Reviewed outpatient records. History of Present Illness Reason for Consultation: Medical management Requesting Physician: Robbie Morales MD Attending Physician: Robbie Morales MD History of Present Illness Priscila is a pleasant 65-year-old woman with PMH of T2DM, hypothyroidism, hyperlipidemia, urge incontinence, hypertension, myalgias, peripheral neuropathy. She presented for C4-C7 anterior cervical discectomy and fusion with Dr. Morales on 03/29/2025. Per review of operative report, EBL was listed as 30 cc, and there were no complications noted. Per review of patient's vitals postop, she has been hypertensive and hypoxic requiring supplemental O2; vitals otherwise stable. Patient seen and evaluated at bedside postoperatively. She reports a sore throat but denies any significant pain. She has eaten sherbet and tolerated this well. She has not urinated, passed gas, or had a bowel movement postoperatively. She denies any headache, nausea, abdominal pain, chest pain, difficulty breathing. She is requiring 2 L supplemental O2 to maintain her oxygen saturation. Will attempt to wean off oxygen throughout the day. Reviewed how to use incentive spirometer with patient. No additional complaints or concerns at this time. Allergies Allergy/AdvReac Type Severity Reaction Status Date / Time cefadroxil [From [facility]] Allergy Severe Anaphylaxis Verified 03/29/25 06:22 Cephalosporins Allergy Severe Anaphylaxis Verified 03/29/25 06:22 (Cefadroxil) Home Medications Medication Instructions Recorded Confirmed Type calcium 600 mg (as 1 cap PO HS 01/20/19 03/29/25 History carbonate)-vitamin D3 5 mcg (200 unit) capsule (Calcium 600 + D(3)) aspirin 81 mg tablet,delayed 81 mg PO HS 10/26/20 03/29/25 History release (Sonia Low Dose Aspirin) atorvastatin 40 mg tablet 40 mg PO HS #90 tabs 07/26/24 03/29/25 Rx duloxetine 60 mg capsule,delayed 60 mg PO QAM #90 caps 07/26/24 03/29/25 Rx release (Cymbalta) levothyroxine 100 mcg tablet 100 mcg PO QAM #90 tabs 07/26/24 03/29/25 Rx metformin 1,000 mg tablet 1,000 mg PO BID #180 tabs 07/26/24 03/29/25 Rx oxybutynin chloride 10 mg 10 mg PO DAILY #90 tabs 07/26/24 03/29/25 Rx tablet,extended release 24 hr omega 1-rqa-cfl-fish oil 900 1 cap PO QAM 10/31/24 03/29/25 History mg-1,400 mg capsule,delayed release celecoxib 100 mg capsule (Celebrex) 100 mg PO BID #60 caps 02/13/25 03/29/25 Rx albuterol sulfate 90 mcg/actuation 1 - 2 puff inhalation Q4 PRN 03/07/25 03/29/25 Rx aerosol inhaler (Ventolin HFA) Shortness Of Breath Or Wheezing #6.7 grams hydrochlorothiazide 12.5 mg tablet 12.5 mg PO DAILY #30 tabs 03/07/25 03/29/25 Rx lisinopril 5 mg tablet 5 mg PO DAILY #30 tabs 03/07/25 03/29/25 Rx Patient History Medical History Anxiety Arthralgia of multiple sites Cervical kyphosis Cervical spinal stenosis Depression Dyslipidemia Exercise-induced asthma Herniated cervical disc History of kidney stones HTN (hypertension) Hypothyroidism Left arm weakness R/t current cervical issues Paresthesia and pain of both upper extremities Peripheral neuropathy Feet Temporomandibular joint disorder Occasional clicking (w/certain foods, no locking) Type 2 diabetes mellitus Surgical History H/O arthroscopy of knee Left H/O dilation and curettage History of carpal tunnel release of both wrists History of cataract surgery R/L History of cystoscopy 2020 History of hysteroscopy 2013, PMB on HRT History of lithotripsy (~2006) with stent placement History of salpingo-oophorectomy History of tonsillectomy and adenoidectomy History of tooth extraction History of wisdom tooth extraction S/P colonoscopy last 08/2020 hx of polypectomy Status post trigger finger release x5 Family History Family/Other No problems noted. Mother Myocardial infarction Family history of reaction to anesthesia difficulty waking Father Family history of diabetes mellitus Denies family history of Ovarian cancer Prostate cancer Breast cancer Colorectal cancer Social History Smoking Status: Former smoker Tobacco Type: Cigarettes Age Started Using Tobacco: 14; Age Quit Using Tobacco: 51; packs per day: 0.9; Smoking End Date: Quit 2011; Second Hand Exposure: Yes (parents smoked/ex and children all smoke); Do You Dip or Chew Tobacco: No; Tobacco Cessation Education Requested by Patient: No Hx Alcohol Use: Yes Alcohol type: beer Hx Substance Use: No Preferred Language: Amharic Communication Ability: Effective Pipe Stem Sawyer Required: No Beliefs That Will Affect Care: None marital status: Current Living Situation: Alone current occupational status: employed current occupation: Traffic Worker How many Children do You have: 3 Other Information That Helps Us Care for You: No Feels Safe at Home: Yes Safety Concerns: Feels Safe At This Time Childhood Exposure to Second-Hand Smoke: Yes Diet: regular caffeine: Yes Dental Care, Regularly: Yes Physical Activity Frequency: Does not Exercise Seatbelt Use: always Sunscreen Use: Yes Assistive Devices: None Review of Systems Review of Systems: All systems reviewed & are unremarkable except as noted in HPI & below Ear, Nose, Mouth, Throat: + sore throat Physical Exam Physical Exam: General: No acute distress, nondiaphoretic, well-developed, well-nourished. HEENT: TAMIR drain present on anterior neck, draining sanguinous fluid. Dressing clean dry and intact. Skin: Warm, dry. No rashes or peripheral edema noted. Cardiac: Regular rate and rhythm without murmurs gallops or rubs. Pulm: Diminished at bases but otherwise clear to auscultation bilaterally without wheezes, rales or rhonchi. Normal respiratory effort. 96% on 2 L NC. Abdominal: Soft, nontender, nondistended. Neuro: A&O x3. No focal neurological deficits. Results & Data Results & Data Vital Signs (Past 12 Hours) Vital Signs Temp Pulse Pulse Resp BP Pulse Ox O2 Del Method 03/29/25 14:40 97.3 F L 83 16 179/80 H 96 Nasal Cannula 03/29/25 14:09 97.3 F L 80 18 161/88 H 95 Nasal Cannula 03/29/25 14:03 83 15 96 Nasal Cannula 03/29/25 13:44 97.9 F 82 16 158/92 H 94 Nasal Cannula 03/29/25 13:30 68 16 166/94 H 94 Nasal Cannula 03/29/25 13:20 98.1 F 77 16 160/89 H 95 Nasal Cannula 03/29/25 13:10 79 16 150/89 H 94 Nasal Cannula 03/29/25 13:00 85 14 156/96 H 95 Nasal Cannula 03/29/25 12:50 85 14 163/92 H 95 Nasal Cannula 03/29/25 12:40 94 H 16 164/90 H 94 Nasal Cannula 03/29/25 12:30 86 16 155/97 H 98 Nasal Cannula 03/29/25 12:24 97.5 F L 117 H 24 184/107 H 94 Nasal Cannula 03/29/25 06:27 97.9 F 77 20 154/94 H 95 Room Air O2 Flow Rate 03/29/25 14:40 2 03/29/25 14:09 2 03/29/25 14:03 2 03/29/25 13:44 2 03/29/25 13:30 3 03/29/25 13:20 3 03/29/25 13:10 3 03/29/25 13:00 3 08/29/25 12:50 3 03/29/25 12:40 4 03/29/25 12:30 4 03/29/25 12:24 4 03/29/25 06:27 PG Care Time/CCT Total # of Minutes Spent Total Time Spent with Patient: Total time spent is greater than 50% in coordination of care (as documented) at patient's floor/unit and/or counseling patient: Coding Level of Care Code 92435 IN/OBS CONSULT LVL 4,60M Diagnoses Cervical myelopathy G95.9 Primary hypertension I10 Hypertension type: primary hypertension Type 2 diabetes mellitus with diabetic polyneuropathy, without long-term current use of insulin E11.42 Diabetes mellitus fci insulin use: without intermediate school teacher use Diabetes mellitus complication status: with neurologic complications Diabetes mellitus complication detail: with polyneuropathy (2) Hypertension Hypertension type: primary hypertension Qualified Code(s): I10 - Essential (primary) hypertension (3) Type 2 diabetes mellitus Diabetes mellitus fci insulin use: without fci use Diabetes mellitus complication status: with neurologic complications Diabetes mellitus complication detail: with polyneuropathy Qualified Code(s): E11.42 - Type 2 diabetes mellitus with diabetic polyneuropathy"
[2025-03-29] MEDS: LACTATED RINGER'S 1,000 ML IV SCH (15:01)
[2025-03-29] MEDS: hydroCHLOROthiazide 25 MG TAB PO STA (15:38)
[2025-03-29] MEDS ORDERED: PHARMACY GLYCEMIC MGMT CONSULT PRN (16:35)
[2025-03-29] MEDS ORDERED: CARBOHYDRATES FOR HYPOGLYCEMIA PO PRN (16:45)
[2025-03-29] MEDS ORDERED: DEXTROSE 50% 50 ML SYRINGE IV PRN (16:45)
[2025-03-29] MEDS ORDERED: GLUCAGON FOR INJ 1 MG VIAL SQ PRN (16:45)
[2025-03-29] MEDS ORDERED: GLUCOSE 40% GEL 15 GM TUBE PO PRN (16:45)
[2025-03-29] MEDS ORDERED: GLUCOSE 10 TAB/TUBE PO PRN (16:45)
[2025-03-29] MEDS: INSULIN ASPART PER UNIT CHARGE SC SCH (17:10)
[2025-03-29] MEDS: ASPIRIN 81 MG ECTAB PO SCH (20:07)
[2025-03-29] MEDS: DOCUSATE SODIUM/SENNA 50/8.6MG TAB PO SCH (20:07)
[2025-03-29] MEDS: VANCOMYCIN HCL 1,000 MG in SODIUM CHLORIDE 0.9% 250 ML IV SCH (20:07)
[2025-03-29] MEDS: ATORVASTATIN 40 MG TAB PO SCH (20:08)
[2025-03-29] MEDS ORDERED: CALCIUM 600MG + VIT D 400 IU TAB PO SCH (21:00)
[2025-03-30] MEDS: LEVOTHYROXINE SODIUM 100 MCG TABLET PO SCH (06:11)
[2025-03-30] MEDS: POLYETHYLENE (MIRALAX) 17 GM PACK PO SCH (06:11)
[2025-03-30 06:40] LABS: Hematocrit (blood only) 38.1 % (37.0-47.0); Hemoglobin 13.2 g/dl (12.0-16.0); Immature Granulocytes # (auto) 0.08 K/uL (0.01-0.20); Immature Granulocytes % (auto) 0.6 %; Mean Corpuscular Hemoglobin 30.8 pg (25.0-34.0); Mean Corpuscular Volume 89.0 fL (80.0-100.0); Platelet Count 248 K/uL (130-400); RDW Standard Deviation 38.5 fL (36.4-46.3); Red Blood Count 4.28 M/uL (4.20-5.40); White Blood Count 12.91 K/ul (4.8-10.8)
[2025-03-30 07:01] LABS: Anion Gap 8.0 (3-11); Blood Urea Nitrogen 11.0 mg/dl (6-23); Calcium 9.6 mg/dl (8.6-10.3); Carbon Dioxide 29.0 mmol/L (21-32); Chloride 104.0 mmol/L (98-107); Creatinine Clr Calc Pharmacy 86.2 ml/min; Glucose 151.0 mg/dl (70-99(Fasting)); Potassium 4.6 mmol/L (3.5-5.1); Sodium 141.0 mmol/L (136-145)
--- NOTE | 2025-03-30 08:12 | Hospitalist Progress Note ---
"Date of Service March 30, 2025 Assessment & Plan (1) Cervical myelopathy: (2) Hypertension: (3) Type 2 diabetes mellitus: (4) S/P cervical spinal fusion: Plan Priscila is a pleasant 65-year-old woman with PMH of T2DM, hypothyroidism, hyperlipidemia, urge incontinence, hypertension, myalgias, peripheral neuropathy. She presented for C4-C7 anterior cervical discectomy and fusion with Dr. Morales on 03/29/2025. Per review of operative report, EBL was listed as 30 cc, and there were no complications noted. #Cervical myelopathy | S/p C4-C7 discectomy and fusion - Pain control, VTE prophylaxis, activity level, discharge planning per primary team - CBC with mild leukocytosis of 12.91 - suspect secondary to steroids. Afebrile, no signs of acute infection. Hgb stable postop at 13.2. - BMP unremarkable - renal function stable and at baseline, electrolytes WNL - Was still requiring supplemental O2 this morning, likely due to atelectasis from anesthesia. She has been weaned off O2 and is stable on room air. Continue to use incentive spirometer every 1-2 hours for the next few days #Hypertension - Has remained hypertensive throughout hospital stay. Ensure adequate pain control. Could increase home BP regimen if needed (i.e. increase lisinopril to 10 mg daily) - Continue home BP regimen of lisinopril 5 mg daily and HCTZ 12.5 mg daily - Added IV hydralazine PRN with parameters #T2DM most recent A1c 6.0% in March 2025 - Pharmacy glycemic consult in place in setting of steroid use #Hypothyroidismcontinue Synthroid #Hyperlipidemiacontinue atorvastatin 40 mg HS #Urge incontinencecontinue oxybutynin #Myalgias | Peripheral neuropathycontinue Cymbalta Patient is medically stable for discharge from hospital medicine's perspective. Primary team plans to discharge home later this afternoon. Hospital medicine will sign off at this time. Please reach out with any questions or concerns prior to discharge. Admission and Anticipated Discharge Date Admission Date: March 29, 2025 Subjective Patient seen and evaluated at bedside. She reports feeling well is very eager to go home today. She denies any pain at this time. She has been weaned off supplemental O2 and denies any shortness of breath. She is well tolerating her diet and has no difficulty with swallowing. She is passing gas and urinating without difficulty. No BM postoperatively yet. She reports the plan is for her to be discharged later this afternoon. Informed her she is medically stable for discharge from my perspective. No additional complaints or concerns at this time. Physical Exam Physical Exam: General: No acute distress, nondiaphoretic, well-developed, well-nourished. HEENT: TAMIR drain present on anterior neck, draining sanguinous fluid. Dressing in place with mild shadowing. Skin: Warm, dry. No rashes or peripheral edema noted. Cardiac: Regular rate and rhythm without murmurs gallops or rubs. Pulm: Diminished at bases but otherwise clear to auscultation bilaterally without wheezes, rales or rhonchi. Normal respiratory effort. 94% on room air. Abdominal: Soft, nontender, nondistended. Bowel sounds present. Neuro: A&O x3. No focal neurological deficits. Results & Data Results & Data Vital Signs (Past 12 Hours) Vital Signs Temp Pulse Pulse Resp BP Pulse Ox O2 Del Method 03/30/25 06:56 98.8 F 81 16 162/95 H 94 Nasal Cannula 03/30/25 05:05 98.1 F 94 H 16 171/97 H 99 Nasal Cannula 03/30/25 03:20 87 18 97 Room Air 03/30/25 02:54 97.3 F L 76 18 149/84 H 96 Nasal Cannula 03/30/25 00:42 97.9 F 77 16 152/83 H 97 Nasal Cannula 03/29/25 22:41 98.1 F 71 18 144/88 H 97 Nasal Cannula 03/29/25 20:41 98.1 F 75 16 148/87 H 98 Nasal Cannula 03/29/25 20:40 Nasal Cannula O2 Flow Rate 03/30/25 06:56 1 03/30/25 05:05 2 03/30/25 03:20 03/30/25 02:54 2 03/30/25 00:42 2 03/29/25 22:41 2 03/29/25 20:41 2 03/29/25 20:40 2 Laboratory Results Reviewed CBC Reviewed BMP PG Care Time/CCT Total # of Minutes Spent Total Time Spent with Patient: Total time spent is greater than 50% in coordination of care (as documented) at patient's floor/unit and/or counseling patient: Coding Level of Care Code 04309 SUB INP/OBS CARE MIN Diagnoses Cervical myelopathy G95.9 Primary hypertension I10 Hypertension type: primary hypertension Type 2 diabetes mellitus with diabetic polyneuropathy, without long-term current use of insulin E11.42 Diabetes mellitus complication detail: with polyneuropathy Diabetes mellitus complication status: with neurologic complications Diabetes mellitus jail insulin use: without middle or intermediate school principal use S/P cervical spinal fusion Z98.1 (2) Hypertension Hypertension type: primary hypertension Qualified Code(s): I10 - Essential (primary) hypertension (3) Type 2 diabetes mellitus Diabetes mellitus complication detail: with polyneuropathy Diabetes mellitus complication status: with neurologic complications Diabetes mellitus middle or intermediate school principal insulin use: without middle or intermediate school principal use Qualified Code(s): E11.42 - Type 2 diabetes mellitus with diabetic polyneuropathy"
[2025-03-30] MEDS: OXYBUTYNIN CHLORIDE XL 5 MG TABCR PO SCH (08:21)
--- NOTE | 2025-03-30 08:30 | Orthopedic Progress Note ---
Date of Service March 30, 2025 Assessment & Plan (1) Herniated nucleus pulposus, C6-7: (2) Herniated nucleus pulposus, C5-6: (3) Herniated nucleus pulposus, C4-5: (4) Cervical myelopathy: Plan Patient doing well postoperatively, will monitor drain until 3 PM today. If less than 20 cc output will discontinue drain Ambulate as tolerated, SCDs for DVT prophylaxis Advance diet as tolerated Collar when out of bed, may remove for hygiene, eating and sleeping Likely discharge later today after x-rays, will follow-up in the office in approximately 2 weeks. Subjective 65-year-old female status post ACDF C4-C7, able to move her upper extremities much better this morning than preoperative, no radicular pain. Mild dysphagia but improving, able to tolerate food and liquids. Voiding normally. Review of Systems All systems reviewed & are unremarkable except as noted in HPI & below. Physical Exam Anterior Arnaldo drain functioning, minimal drainage since 1 AM 5 out of 5 strength bilateral C5-T1 myotomes Sensation intact to light touch C5-T1 dermatomes Results & Data Results & Data Laboratory Results . Diagnostic Findings . PG Care Time/CCT Total # of Minutes Spent Total Time Spent with Patient: Total time spent is greater than 50% in coordination of care (as documented) at patient's floor/unit and/or counseling patient: Coding Level of Care Code 89629 Post Operative Follow-Up Diagnoses Herniated nucleus pulposus, C6-7 M50.223 Herniated nucleus pulposus, C5-6 M50.222 Herniated nucleus pulposus, C4-5 M50.221 Cervical myelopathy G95.9
[2025-03-30] MEDS: LANTUS PER UNIT CHARGE SC ONE (08:32)
--- NOTE | 2025-03-30 08:38 | Discharge Summary ---
Date of Service March 30, 2025 Principal Diagnosis Same as "Discharge Diagnosis" noted below under Discharge Instructions. Discharge Exam Anterior Arnaldo drain functioning, minimal drainage since 1 AM 5 out of 5 strength bilateral C5-T1 myotomes Sensation intact to light touch C5-T1 dermatomes Discharge Data Consultations 03/29/25 13:51 Consult Hospitalist Routine Procedures Performed Operation Date: 03/29/25 07:30 Actual Procedures p C4-C5, C5-C6, C6-C7 Anterior Cervical Discectomy and Fusion with Spinal Cord Monitoring(Not Applicable) - Robbie Morales MD Ordered Studies 03/29/25 07:30 FL cervical 2-3V Routine Hospital Course (1) S/P cervical spinal fusion: (2) Herniated nucleus pulposus, C6-7: (3) Herniated nucleus pulposus, C5-6: (4) Herniated nucleus pulposus, C4-5: (5) Cervical spinal stenosis: (6) Cervical myelopathy: Plan Patient was admitted postoperatively for pain control and mobilization with physical therapy. They worked with physical therapy and met all goals. Pain was controlled with IV pain medication and transitioned to oral medications. Normal return of bowel and bladder function. They worked with physical therapy, vital signs were acceptable, no need for transfusion, deemed safe for discharge. PG Care Time/CCT Total # of Minutes Spent Total Time Spent with Patient: Total time spent is greater than 50% in coordination of care (as documented) at patient's floor/unit and/or counseling patient: Discharge Plan Discharge Items Patient Disposition: Home - Self-Care Reason For Visit: C6-C7, C5-C6, C4-C5 Herniated Nucleus Pulposus, [place] Discharge Diagnosis: s/p C4-5, 5-6, 6-7 ACDF Activity: Per Instructions section Lifting: No more than 5 pounds Bathing Comment: Follow instructions section Non-emergency contact: Surgeon Call non-emergency contact if: your symptoms worsen, your pain is worsening, your temperature is above 101 and your wound has increased drainage Follow-up/Referrals: Judith Hayes MD [Primary Care Provider] - Robbie Morales MD [Surgeon] - (04/09/25 @ 10:30) Diet: Regular Diet Texture: Dental soft (bite-sized) Diet Comment: Advance diet texture as tolerated Addtl Attending Provider Instructions: Instructions for FUSION Spine Surgery DO NOT TAKE ANY ANTI-INFLAMMATORY MEDICATIONS (MOTRIN, ALEVE, MOBIC, ETC.) IF YOU HAVE UNDERGONE A LUMBAR, THORACIC, OR CERVICAL FUSION DO NOT TAKE ANY HERBAL SUPPLEMENTS MEDICATIONS: You will be given prescriptions for the following: Oxycodone, Percocet or Hydrocodone - For breakthrough pain. Cyclobenzaprine (Flexeril), Valium (Diazepam), Tizanidine (Zanaflex), or Methocarbamol (Robaxin) For muscle spasms and back pain. Take these medications as needed. They will help the most during your recovery time. Senna-s and Miralax Senna-S twice daily, 17g packet of Miralax with water once daily while taking narcotics. These medications prevent constipation caused by the pain medications. Ondansetron (Zofran) For nausea. Cephalexin (Keflex) or Sulfamethoxazole/trimethoprim (Bactrim). Antibiotic. You are given IV antibiotics while in the hospital; you may or may not be given a prescription for home; this will be decided after surgery. Your pre-surgery prescription medications With the exception of anti- inflammatory medications, blood thinners (Coumadin, Plavix, Eliquis, Pradaxa, etc.), or narcotic pain medications, you may resume your home medications. For the above medications, you will be given specific instructions; you may resume blood thinners 3-4 days after surgery. ACTIVITIES: Walking Walking is mandatory. You need to walk at least once every hour while awake. Walking will help prevent blood clots in your legs and help prevent spasms in your back. Bending/twisting Limit bending at the waist, limit twisting and turning. You will be taught to "log roll" to get out of bed. Avoid athletic activities until further notice. Lifting Do NOT lift more than 5 lbs until further notice. Driving You may drive when you are no longer taking narcotic pain medications, can safely operate the brake/gas/clutch pedals, and can move your head/neck for visibility. Tobacco All tobacco products are strictly prohibited after surgery. Any use will dramatically increase your risk of complications. This includes vapor cigarettes, marijuana, nicotine patches and gums. Bracing/Cervical Collar There is no brace required for thoracic or lumbar surgery. If you have had a single level cervical fusion, you will be given a soft collar for comfort. Multiple level cervical fusions will receive a hard collar to be worn at all times, except for showering and hygiene, until follow up in clinic. Surgical Dressing Initial operative dressing is to stay on for 2 days; you may change it if it becomes saturated. From then on, change the dressing daily with dry gauze and paper tape. Continue to change dressing until there is no discharge. Once there is no discharge on the dressing, you may leave the incision open to air but make sure to keep it out of the sun. For supplies, stop by any local pharmacy. Any type of gauze dressing is acceptable. Do not put any ointments on the wound. You may shower 48 hours after your surgery. Cover the incision with Saran Wrap and tape the edges to prevent water from contacting the incision. If water contacts the incision, pat dry. No baths or submerging the incision until seen in the clinic at follow up appointment. Next Appointment: If you do not already have one made, you will need to schedule an appointment to see Dr. Morales about 2 weeks after surgery. To schedule, please call [phone]. QUESTIONS Please contact the office with questions or concerns: [phone] If outside normal business hours, you will be connected with the on-call physician. Pending Studies at Discharge: Yes Studies:: X-rays Stand-Alone Forms: My [facility] [employer], Smoking Cessation Medications and DC Order Prescriptions: New tizanidine 4 mg Tablet 4 mg PO Q8H PRN (Reason: Muscle spasm) 30 Days Qty: 90 0RF oxycodone-acetaminophen [Endocet] 5-325 mg tablet 1 tab PO Q4H PRN (Reason: pain) Qty: 60 0RF Continued oxybutynin chloride 10 mg tablet extended release 24hr 10 mg PO DAILY Qty: 90 3RF Patient Comments: qam duloxetine [Cymbalta] 60 mg capsule,delayed release(DR/EC) 60 mg PO QAM Qty: 90 3RF atorvastatin 40 mg tablet 40 mg PO HS Qty: 90 3RF levothyroxine 100 mcg tablet 100 mcg PO QAM Qty: 90 3RF metformin 1,000 mg tablet 1,000 mg PO BID Qty: 180 3RF albuterol sulfate [Ventolin HFA] 90 mcg/actuation HFA aerosol inhaler 1 - 2 puff inhalation Q4 PRN (Reason: Shortness Of Breath Or Wheezing) Qty: 6.7 4RF lisinopril 5 mg tablet 5 mg PO DAILY Qty: 30 3RF Patient Comments: qam hydrochlorothiazide 12.5 mg tablet 12.5 mg PO DAILY Qty: 30 2RF Patient Comments: qam Calcium 600 + D(3) 600 mg calcium- 200 unit capsule 1 cap PO HS aspirin [Sonia Low Dose Aspirin] 81 mg Tablet,Delayed Release (Dr/Ec) 81 mg PO HS omega 1-nyz-fst-fish oil 900-1,400 mg Capsule,Delayed Release(Dr/Ec) 1 cap PO QAM Discontinued celecoxib [Celebrex] 100 mg capsule 100 mg PO BID Qty: 60 1RF Discharge Orders: Discharge Order (Routine); Ordered 03/30/25 Ordered By: Robbie Morales Admission Data Admit Date/Time: 03/29/25 07:30 Attending Provider: Robbie Morales Admit Provider: Robbie Morales Primary Care Provider: Judith Hayes Other Providers: Raman Tracy; Tito Gordon; Javon Chaudhari; Nathan Sheldon; Rashid Coats; Evelyn Wagner; Paula Espinal; María Hines; Muna Espana; Slick Fuchs; Sharon Mason; Celso Rich; Laury Tamayo; Tito Mitchell; Igor Garcia; David Haynes; Judy Enamorado; Judy Cheema; Theresa Blankenship; Leyda Blancas; Zuri Alston; Yvette Galeas; Aleksandr Mills; Parker Sousa; Justice Lowe; Ramin Casillas; Maribell Smalls; Charlette Garcia; Neil Womack; Suzan De Santiago; Nathan Servin; Martha Tadeo; Belinda Recinos; Marva Thomas; Ye Elizabeth; Jose Gayle; Pelon Wise; Modesto Medina; Angelica Rubin; Elmer Schwartz; Airam Martinez; Dalton Mahmood; Julissa Corona; Yaniv Pavon; Majo Mahmood; Markus Larry; Tyson Mondragon; Luz Pelletier; Addy Rodriguez A
[2025-03-30] MEDS ORDERED: hydroCHLOROthiazide 25 MG TAB PO SCH (09:00)
--- NOTE | 2025-03-30 09:22 | XRay Report ---
Technique: 2 views of the cervical spine are submitted for review Comparison is made to the MRI dated 12/14/2024 Findings: There is a new anterior fusion of C4-C7 with an anterior fixation plate and screws and prosthetic disc placement. There is no definite sign of instrumentation failure. There is a surgical drain in the prevertebral space The cervical vertebrae are in normal alignment with no listhesis seen. No fracture is identified. No focal osseous lesion is evident. The unfused intervertebral disc spaces appear preserved. Impression: New fusion of C4-C7 Electronically signed by Nnamdi Wu 03-30-2025 09:22 AM
[2025-03-30 13:56] VITALS: BP 150/67; PULSE 88; RESP 18; TEMP 97.9; O2SAT 96
== END 2025-03-30 15:22 | disposition home or self-care (01) | DRG 473 ==
LOC: ASU 05:40 → 3E 07:30